=== PATIENT | female | born 1960 | race Caucasian/White ===

== ENCOUNTER 2017-06-05 18:24 | Emergency (ER) | payer MEDICARE, MEDICAID ==
[~2017-06-05] VITALS: Ht 172.7 cm; Wt 101.2 kg
[~2017-06-05 18:24] MED LIST: ALBU8.5H2 INH; BENZ0.5T3 PO; DULO30CA48 PO; DULO60CA58 PO; FLUT1DIS26 INH; FURO20TA4 PO; IBUP800T26 PO; MELO-195 PO; MONT10TA24 PO; NF-ABIL15T PO; NF-ESOM40C PO; OXYB10TA8 PO
--- OUTSIDE RECORDS SUMMARY | 2017-06-05 18:30 | XMS REPORT ---
Author Author NGUYỄN GARBER [facility] eClinicalWorks Address Unknown Phone Unavailable Care Team Providers Care Director Of Revenue Cycle Management Name Role Phone NGUYỄN GARBER CP Unavailable Allergies No Known Allergies Problems Problem Type Condition Code Onset Dates Condition Status Problem Neuropathy G62.9 Active Problem Menopausal symptoms N95.1 Active Problem Rosacea L71.9 Active Problem GERD (gastroesophageal reflux disease) K21.9 Active Problem Arthritis M19.90 Active Problem Mood disorder F39 Active Medications Medication Code System Code Instructions Start Date End Date Status Dosage ibuprofen [facility] [address]-92 800 mg Oral 3 times a day 1 tablet Results No Known Results Summary Purpose eClinicalWorks Submission
--- OUTSIDE RECORDS SUMMARY | 2017-06-05 18:30 | XMS REPORT ---
Author Author NGUYỄN GARBER [facility] Address [address] [place] [address] Care Team Providers Care Working Manager Name Role Phone NGUYỄN GARBER Unavailable PROBLEMS Type Condition ICD9-CM Code [id number] Code Onset Dates Condition Status SNOMED Code Problem Rosacea L71.9 Active 890965710 Problem Neuropathy G62.9 Active 301778535 Problem Mood disorder F39 Active 12053042 Problem GERD (gastroesophageal reflux disease) K21.9 Active 738355057 Problem Menopausal symptoms N95.1 Active 75831842 Problem Arthritis M19.90 Active 0679168 ALLERGIES Unknown Allergies SOCIAL HISTORY No smoking Hx information available PLAN OF CARE VITAL SIGNS MEDICATIONS Unknown Medications RESULTS No Results PROCEDURES No Known procedures IMMUNIZATIONS No Known Immunizations
--- OUTSIDE RECORDS SUMMARY | 2017-06-05 18:30 | XMS REPORT ---
Author Author NGUYỄN GARBER Organization [employer] Address Unknown Phone Unavailable Care Team Providers Care Talent Acquisition Associate Name Role Phone NGUYỄN GARBER CP Unavailable Allergies No Known Allergies Problems Problem Type Condition Code Onset Dates Condition Status Problem Arthritis M19.90 Active Problem Mood disorder F39 Active Problem Menopausal symptoms N95.1 Active Problem GERD (gastroesophageal reflux disease) K21.9 Active Medications No Known Medications Results No Known Results Summary Purpose eClinicalWorks Submission
--- OUTSIDE RECORDS SUMMARY | 2017-06-05 18:30 | XMS REPORT ---
Author Author NGUYỄN GARBER [facility] Address [address] [place] [address] Care Team Providers Care Shipping And Receiving Operator Name Role Phone NGUYỄN GARBER Unavailable PROBLEMS Type Condition ICD9-CM Code FRA01-MZ Code Onset Dates Condition Status SNOMED Code Problem Rosacea L71.9 Active 166146964 Problem Neuropathy G62.9 Active 038239870 Problem Mood disorder F39 Active 45772986 Problem GERD (gastroesophageal reflux disease) K21.9 Active 023503270 Problem Menopausal symptoms N95.1 Active 48419166 Problem Arthritis M19.90 Active 4008885 ALLERGIES Unknown Allergies SOCIAL HISTORY No smoking Hx information available PLAN OF CARE VITAL SIGNS MEDICATIONS Unknown Medications RESULTS No Results PROCEDURES No Known procedures IMMUNIZATIONS No Known Immunizations
--- OUTSIDE RECORDS SUMMARY | 2017-06-05 18:30 | XMS REPORT ---
Author Author NGUYỄN GARBER [facility] eClinicalWorks Address Unknown Phone Unavailable Care Team Providers Care Paid Intern Name Role Phone NGUYỄN GARBER Unavailable Allergies No Known Allergies Problems Problem Type Condition Code Onset Dates Condition Status Problem Arthritis M19.90 Active Problem Mood disorder F39 Active Problem Menopausal symptoms N95.1 Active Problem GERD (gastroesophageal reflux disease) K21.9 Active Medications Medication Code System Code Instructions Start Date End Date Status Dosage Duloxetine HCl [facility] [address]-81 30 MG Orally. Must attend appt for further refills Once a day 1 capsule Duloxetine HCl [facility] [address]-60 60 mg Orally. Must attend appt for further refills Once a day 1 capsules Esomeprazole Sodium [facility] [address]-36 40 mg by oral route 2 times a day 1 tablet Results No Known Results Summary Purpose eClinicalWorks Submission
--- OUTSIDE RECORDS SUMMARY | 2017-06-05 18:30 | XMS REPORT ---
Author Author NEFTALY ISBELL [facility] Address [address] [place] [address] Care Team Providers Care Insurance Appraiser Name Role Phone NEFTALY ISBELL Unavailable PROBLEMS Type Condition ICD9-CM Code VSK25-YU Code Onset Dates Condition Status SNOMED Code Problem Rosacea L71.9 Active 276928554 Problem Neuropathy G62.9 Active 306896663 Problem Mood disorder F39 Active 23804576 Problem GERD (gastroesophageal reflux disease) K21.9 Active 329810069 Problem Menopausal symptoms N95.1 Active 80335819 Problem Arthritis M19.90 Active 1219905 ALLERGIES Unknown Allergies SOCIAL HISTORY No smoking Hx information available PLAN OF CARE VITAL SIGNS Height 68 in 2016-06-30 Weight 264.4 lbs 2016-06-30 BMI 40.20 kg/m2 2016-06-30 Blood pressure systolic 144 mmHg 2016-06-30 Blood pressure diastolic 86 mmHg 2016-06-30 MEDICATIONS Unknown Medications RESULTS No Results PROCEDURES No Known procedures IMMUNIZATIONS No Known Immunizations
--- OUTSIDE RECORDS SUMMARY | 2017-06-05 18:30 | XMS REPORT | Continuity of Care Document ---
Author Author [facility] Organization [facility] Address Unknown Phone Unavailable Allergies Active Description Code Type Severity Reaction Onset Reported/Identified Relationship to Patient Clinical Status Yes bupropion [id number] Drug Allergy Unknown N/A 09/22/2014 Yes cephalexin [id number] Drug Allergy Unknown N/A 09/22/2014 Yes Penicillins [id number] Drug Allergy Unknown N/A 09/22/2014 Yes Sulfa (Sulfonamide Antibiotics) [id number] Drug Allergy Unknown N/A 09/22/2014 Yes ziprasidone [id number] Drug Allergy Unknown N/A 09/22/2014 Medications Problems Date Dx Coded Attending Type Code Diagnosis Diagnosed By 09/23/2014 LIZZETH MASSEY MD Ot 272.4 HYPERLIPIDEMIA NEC/NOS 09/23/2014 LIZZETH MASSEY MD Ot 278.00 OBESITY, NOS 09/23/2014 LIZZETH MASSEY MD Ot 296.50 BIPOL I, REC EPIS (OR CURRENT) DEPRESSED 09/23/2014 LIZZETH MASSEY MD Ot 305.1 TOBACCO USE DISORDER 09/23/2014 LIZZETH MASSEY MD Ot 356.9 IDIO PERIPH NEURPTHY NOS 09/23/2014 LIZZETH MASSEY MD Ot 401.9 HYPERTENSION NOS 09/23/2014 LIZZEHT MASSEY MD Ot 715.90 OSTEOARTHROS NOS-UNSPEC 09/23/2014 LIZZETH MASSEY MD Ot 782.0 SKIN SENSATION DISTURB 09/23/2014 LIZZETH MASSEY MD Ot 786.50 CHEST PAIN NOS 09/23/2014 LIZZETH MASSEY MD Ot V04.81 ND FOR PROPHYLACTIC VACCIN AND INOCULATI 09/23/2014 LIZZETH MASSEY MD Ot V85.36 BODY MASS INDEX 36.0-36.9, ADULT 09/27/2014 MICHAEL LIM Ot 786.05 05/18/2015 MICHAEL LIM Ot 786.05 05/18/2015 ROXANNA NICHOLE DO Ot 305.90 DRUG ABUSE NEC-UNSPEC 05/18/2015 ROXANNA NICHOLE DO Ot 786.50 CHEST PAIN NOS 04/04/2016 MICHAEL LIM Ot 786.05 SHORTNESS OF BREATH 04/04/2016 CAMPOS DO, JAMEEL L Ot F12.10 CANNABIS ABUSE, UNCOMPLICATED 04/04/2016 CAMPOS DO, JAMEEL L Ot F17.210 NICOTINE DEPENDENCE, CIGARETTES, UNCOMPL 04/04/2016 CAMPOS DO, JAMEEL L Ot I51.7 CARDIOMEGALY 04/04/2016 CAMPOS DO, JAMEEL L Ot R07.89 OTHER CHEST PAIN 04/05/2016 CAMPOS DO, JAMEEL L Ot F12.10 CANNABIS ABUSE, UNCOMPLICATED 04/05/2016 CAMPOS DO, JAMEEL L Ot F17.210 NICOTINE DEPENDENCE, CIGARETTES, UNCOMPL 04/05/2016 CAMPOS DO, JAMEEL L Ot I51.7 CARDIOMEGALY 04/05/2016 CAMPOS DO, JAMEEL L Ot R07.89 OTHER CHEST PAIN 04/10/2016 CAMPOS DO, JAMEEL L Ot F12.10 CANNABIS ABUSE, UNCOMPLICATED 04/10/2016 CAMPOS DO, JAMEEL L Ot F17.210 NICOTINE DEPENDENCE, CIGARETTES, UNCOMPL 04/10/2016 CAMPOS DO, JAMEEL L Ot I51.7 CARDIOMEGALY 04/10/2016 CAMPOS DO, JAMEEL L Ot R07.89 OTHER CHEST PAIN Procedures Results Encounters ACCT No. Visit Date/Time Discharge Status Pt. Type Provider Facility Loc./Unit Complaint [id number] 04/04/2016 16:28:00 2015 17:52:00 DIS Emergency BETH COOPER, JAMEEL L [facility] ER [id number] 05/18/2015 16:01:00 2014 17:45:00 DIS Emergency ROXANNA NICHOLE DO [facility] ER [id number] 09/22/2014 21:15:00 2013 17:11:00 DIS Inpatient LIZZETH MASSEY MD [facility] ICU [id number] 04/29/2013 14:13:00 2012 23:59:59 CLS Outpatient MICHAEL LIM [facility]
--- NOTE | 2017-06-05 19:03 | Diagnostic Imaging Report ---
INDICATION: Stood up today and felt a pop in the knee. Medial sided pain. EXAMINATION: Left knee, 06/05/2017. FINDINGS: Three views of the knee. There is medial compartment joint space narrowing with associated spurring with moderate patellofemoral narrowing and spurring as well as subchondral cystic change. There are no fractures or dislocations appreciated. There is no significant effusion. IMPRESSION: Degenerative findings with no acute osseous abnormality. Dictated by: Dictated on workstation # [id number]
--- NOTE | 2017-06-05 19:13 | ED Lower Extremity ---
General Chief Complaint: Lower Extremity Nursing Triage Note: PT STATES FELT L KNEE POP, WHEN EMS PICKED PT UP SHE SAID IT POPPED BACK INTO PLACE. RATES PAIN 12/21 Nursing Sepsis Screen: No Definite Risk Allergies and Home Medications Allergies Coded Allergies: morphine (Verified Allergy, Mild, 06/05/17) Penicillins (Unverified Allergy, Unknown, 09/22/14) Sulfa (Sulfonamide Antibiotics) (Unverified Allergy, Unknown, 09/22/14) bupropion (Unverified Allergy, Unknown, 09/22/14) cephalexin (Unverified Allergy, Unknown, 09/22/14) ziprasidone (Unverified Allergy, Unknown, 09/22/14) Home Medications Albuterol Sulfate 8.5 Gm Aer.w.adap, 2 PUFF INH Q4H PRN for SHORTNESS OF BREATH, (Reported) Aripiprazole 15 Mg Tablet, 15 MG PO DAILY, (Reported) Benztropine Mesylate 0.5 Mg Tablet, 0.5 MG PO BID, (Reported) Duloxetine HCl 30 Mg Capsule.dr, 30 MG PO DAILY, (Reported) TAKES ALONG WITH 60MG CAPSULE Duloxetine HCl 60 Mg Capsule.dr, 60 MG PO DAILY, (Reported) TAKES ALONG WITH 30MG CAPSULE Esomeprazole Mag Trihydrate 40 Mg Capsule.dr, 40 MG PO BID, (Reported) Fluticasone/Salmeterol 1 Disk Inhp, 1 PUFF INH BID, (Reported) Ibuprofen 800 Mg Tablet, 800 MG PO TID PRN for PAIN, (Reported) Meloxicam 15 Mg Tablet, 15 MG PO DAILY, (Reported) Montelukast Sodium 10 Mg Tablet, 10 MG PO DAILY, (Reported) Oxybutynin Chloride 10 Mg Tab.er.24, 10 MG PO DAILY, (Reported) Past Golecgc-Adriwo-Vtnqrs Hx Patient Social History Alcohol Use: Denies Use Recreational Drug Use: No Smoking Status: Current Everyday Smoker Type Used: Cigarettes Recent Foreign Travel: No Contact w/Someone Who Travel: No Recent Infectious Disease Expo: No Physical Abuse: No Sexual Abuse: No Immunizations Up To Date Tetanus Booster (TDap): Unknown Surgeries History of Surgeries: Yes (CATH-NO INTERVENTION, R WRIST AGE 5, BILATERAL FEET , BILATERAL CATARACTS) Surgeries: Cardiac, Eye Surgery, Hysterectomy, Oophorectomy, Orthopedic Respiratory History of Respiratory Disorde: No Cardiovascular History of Cardiac Disorders: Yes (Previous Angina-1996,CLAIMS "3 HEART ATTACKS " BUT NO MEDICAL DOCUMENTATION ) Cardiac Disorders: High Cholesterol Neurological History of Neurological Disord: Yes (CLAIMS PRIOR STROKE, BUT NO MEDICAL DOCUMENTATION OF THIS) Neurological Disorders: Neuropathy, Stroke Reproductive System Hx Reproductive Disorders: No FIRE CHIEF History: Hysterectomy Gastrointestinal History of Gastrointestinal Di: Yes (SELF-DIAGNOSIS) Gastrointestinal Disorders: Ulcer Musculoskeletal History of Musculoskeletal Dis: Yes Musculoskeletal Disorders: Arthritis Endocrine History of Endocrine Disorders: No (OBESITY) Cancer History of Cancer: No Psychosocial History of Psychiatric Problem: Yes Behavioral Health Disorders: Anxiety, Bipolar Suicide Risk Score: 0 Integumentary History of Skin or Integumenta: No Blood Transfusions History of Blood Disorders: No Adverse Reaction to a Blood Tr: No Physical Exam Vital Signs Vital Sign - Last 12Hours 06/05/17 18:25 Temp 98.6 Pulse 70 Resp 18 B/P (MAP) 142/85 Pulse Ox 92 Capillary Refill : Less Than 3 Seconds Progress/Results/Core Measures Results/Orders My Orders Orders - HAVEN ANTONIO MD Knee, Left, 3 Views (06/05/17 18:29) Vital Signs/I&O Vital Sign - Last 12Hours 06/05/17 18:25 Temp 98.6 Pulse 70 Resp 18 B/P (MAP) 142/85 Pulse Ox 92 Blood Pressure Mean: 104 Diagnostic Imaging Diagonstic Imaging: Xray Plain Films/CT/US/NM/MRI: knee Comments Left knee x-ray viewed by me and report reviewed. See report below: NAME: AZEB HOYOS [facility] REC#: [id number] PT STATUS: REG ER : 1960 PHYSICIAN: HAVEN ANTONIO MD ADMIT DATE: 06/05/17/ER Draft Date of Exam:06/05/17 KNEE, LEFT, 3 VIEWS INDICATION: Stood up today and felt a pop in the knee. Medial sided pain. EXAMINATION: Left knee, 06/05/2017. FINDINGS: Three views of the knee. There is medial compartment joint space narrowing with associated spurring with moderate patellofemoral narrowing and spurring as well as subchondral cystic change. There are no fractures or dislocations appreciated. There is no significant effusion. IMPRESSION: Degenerative findings with no acute osseous abnormality. Dictated on workstation # [id number] Dict: 06/05/17 1857 Trans: 06/05/17 1903 [facility] [id number] Interpreted by: AMERICO CAAL MD Departure Impression Impression: Primary Impression: Left knee pain Qualified Codes: M25.562 - Pain in left knee Disposition: HOME, SELF-CARE Condition: Improved Departure-Patient Inst. Decision time for Depature: 19:05 Referrals: NO,LOCAL PHYSICIAN (PCP/Family) Primary Care Physician Patient Instructions: Osteoarthritis Add. Discharge Instructions: The x-ray showed evidence of arthritis in your knee but no acute injuries. Try taking ibuprofen up to 600 mg every 6 hours as needed for pain. Icing in 20 minute intervals may also be helpful. Follow-up with your primary care provider if this becomes a persistent problem. All discharge instructions reviewed with patient and/or family. Voiced understanding. HAVEN ANTONIO MD Jun 05, 2017 19:13
[2017-06-05 19:20] VITALS: BP 142/85
== END 2017-06-05 19:16 | disposition home or self-care (01) ==
LOC: EDUNIT# 18:24 → ER 18:25
DX: M25.562 Pain in left knee (principal); M17.11 Unilateral primary osteoarthritis, right knee; E66.9 Obesity, unspecified; F41.9 Anxiety disorder, unspecified; F31.9 Bipolar disorder, unspecified; E78.00 Pure hypercholesterolemia, unspecified; I25.2 Old myocardial infarction; F17.210 Nicotine dependence, cigarettes, uncomplicated; Z87.19 Personal history of other diseases of the digestive system; Z90.710 Acquired absence of both cervix and uterus; Z86.73 Personal history of transient ischemic attack (TIA), and cerebral infarction without residual deficits; Z68.33 Body mass index [BMI] 33.0-33.9, adult
CPT/HCPCS: 73562; 99283

== ENCOUNTER → 2017-11-29 | Emergency (ER) | payer MEDICARE, MEDICAID ==
[~2017-11-29] VITALS: Ht 172.7 cm; Wt 101.3 kg
[~2017-11-29] MED LIST changes: +IOHEXOL 350 MG/ML 100 ML (OMNIPAQUE 350) VIAL IV ONE; +NS 250 ML (IVPB) BAG IV ONE
--- NOTE | 2017-11-29 14:41 | ED GI ---
General Chief Complaint: Rect Problems Stated Complaint: VAGINAL BLEEDING Nursing Triage Note: C/O possible anal and vaginal bleeding times 1 month. worse over the last couple of days. believes it is more rectal, blood dark, will be in and around stool. C/O JURADO lower back pain, dark spots in eyes, dizzy states she fells toilet with blood but not bleeding between using toilet Sepsis Screen: No Definite Risk Source of Information: Patient Exam Limitations: No Limitations History of Present Illness Date Seen by Provider: Nov 29, 2017 Time Seen by Provider: 14:39 Initial Comments To ER with reports of either vaginal or rectal bleeding for one month. She states that she had a normal blood panel drawn by Dr. Tran 3 weeks ago but she states she doesn't trust him or anyone. She states that she has a headache, lower abdominal pain, low back pain and she fills the toilet with blood. She's been having loose stools which are bloody and bowel movements are painful. She states that she is not on any anticoagulants that she is "a bleeder". States that she smokes marijuana daily to help with her pain. She states that she's had kidney failure 15 times and she's had 3 heart attacks Timing/Duration: 1-2 Days Severity/Quality: Moderate Location: Suprapubic Radiation: Back Activities at Onset: None Associated Symptoms: Denies Symptoms Allergies and Home Medications Allergies Coded Allergies: morphine (Verified Allergy, Mild, 11/29/17) Penicillins (Unverified Allergy, Unknown, 09/22/14) Sulfa (Sulfonamide Antibiotics) (Unverified Allergy, Unknown, 09/22/14) bupropion (Unverified Allergy, Unknown, 09/22/14) cephalexin (Unverified Allergy, Unknown, 09/22/14) ziprasidone (Unverified Allergy, Unknown, 09/22/14) Home Medications Albuterol Sulfate 8.5 Gm Aer.w.adap, 2 PUFF INH Q4H PRN for SHORTNESS OF BREATH, (Reported) Aripiprazole 15 Mg Tablet, 15 MG PO DAILY, (Reported) Benztropine Mesylate 0.5 Mg Tablet, 0.5 MG PO BID, (Reported) Duloxetine HCl 30 Mg Capsule.dr, 30 MG PO DAILY, (Reported) TAKES ALONG WITH 60MG CAPSULE Duloxetine HCl 60 Mg Capsule.dr, 60 MG PO DAILY, (Reported) TAKES ALONG WITH 30MG CAPSULE Esomeprazole Mag Trihydrate 40 Mg Capsule.dr, 40 MG PO BID, (Reported) Fluticasone/Salmeterol 1 Disk Inhp, 1 PUFF INH BID, (Reported) Ibuprofen 800 Mg Tablet, 800 MG PO TID PRN for PAIN, (Reported) Meloxicam 15 Mg Tablet, 15 MG PO DAILY, (Reported) Montelukast Sodium 10 Mg Tablet, 10 MG PO DAILY, (Reported) Oxybutynin Chloride 10 Mg Tab.er.24, 10 MG PO DAILY, (Reported) Review of Systems Constitutional: see HPI, No chills, No fever EENTM: No Symptoms Reported Respiratory: No Symptoms Reported Cardiovascular: See HPI, Denies Chest Pain, Lightheadedness Gastrointestinal: See HPI, Abdominal Pain Genitourinary: No Symptoms Reported Musculoskeletal: no symptoms reported Skin: no symptoms reported Psychiatric/Neurological: No Symptoms Reported Endocrine: No Symptoms Reported Hematologic/Lymphatic: No Symptoms Reported Past Buslilm-Shzezk-Gzrdfu Hx Patient Social History Alcohol Use: Denies Use Recreational Drug Use: Yes (pot- regular use) Smoking Status: Current Everyday Smoker Type Used: Cigarettes Recent Foreign Travel: No Contact w/Someone Who Travel: No Recent Infectious Disease Expo: No Physical Abuse: No Sexual Abuse: No Mistreated: No Fear: No Immunizations Up To Date Tetanus Booster (TDap): Unknown Surgeries History of Surgeries: Yes (CATH-NO INTERVENTION, R WRIST AGE 5, BILATERAL FEET , BILATERAL CATARACTS) Surgeries: Cardiac, Eye Surgery, Hysterectomy, Oophorectomy, Orthopedic Respiratory History of Respiratory Disorde: No Cardiovascular History of Cardiac Disorders: Yes (Previous Angina-1996,CLAIMS "3 HEART ATTACKS " BUT NO MEDICAL DOCUMENTATION ) Cardiac Disorders: High Cholesterol Neurological History of Neurological Disord: Yes (CLAIMS PRIOR STROKE, BUT NO MEDICAL DOCUMENTATION OF THIS) Neurological Disorders: Neuropathy, Stroke Reproductive System Hx Reproductive Disorders: No [employer] History: Hysterectomy Gastrointestinal History of Gastrointestinal Di: Yes (SELF-DIAGNOSIS) Gastrointestinal Disorders: Ulcer Musculoskeletal History of Musculoskeletal Dis: Yes (neuropathy) Musculoskeletal Disorders: Arthritis Endocrine History of Endocrine Disorders: No (OBESITY) Cancer History of Cancer: No Psychosocial History of Psychiatric Problem: Yes Behavioral Health Disorders: Anxiety, Bipolar Suicide Risk Score: 0 Integumentary History of Skin or Integumenta: No Blood Transfusions History of Blood Disorders: No Adverse Reaction to a Blood Tr: No Physical Exam Vital Signs VS - Last 72 Hours, by Label 11/29/17 14:10 Pulse 88 Resp 18 B/P (MAP) 142/87 (105) Pulse Ox 96 Capillary Refill : Less Than 3 Seconds General Appearance: WD/WN, no apparent distress HEENT: PERRL/EOMI, normal ENT inspection Neck: non-tender, full range of motion Respiratory: no respiratory distress, no accessory muscle use Cardiovascular: regular rate, rhythm, no murmur Gastrointestinal: normal bowel sounds, soft, tenderness (suprapubic) Extremities: normal range of motion, non-tender Pelvic: other (no blood at the vaginal introitus or at the rectum) Neurologic/Psychiatric: alert, normal mood/affect, oriented x 3 Skin: normal color, warm/dry Progress/Results/Core Measures Results/Orders Lab Results Laboratory Tests Test 11/29/17 14:30 11/29/17 14:38 Range/Units White Blood Count 10.0 4.3-11.0 10^3/uL Red Blood Count 5.04 4.35-5.85 10^6/uL Hemoglobin 14.9 11.5-16.0 G/DL Hematocrit 43 35-52 % Mean Corpuscular Volume 86 80-99 FL Mean Corpuscular Hemoglobin 30 25-34 PG Mean Corpuscular Hemoglobin Concent 35 32-36 G/DL Red Cell Distribution Width 14.1 10.0-14.5 % Platelet Count 212 130-400 10^3/uL Mean Platelet Volume 11.6 H 7.4-10.4 FL Neutrophils (%) (Auto) 64 42-75 % Lymphocytes (%) (Auto) 28 12-44 % Monocytes (%) (Auto) 7 0-12 % Eosinophils (%) (Auto) 1 0-10 % Basophils (%) (Auto) 0 0-10 % Neutrophils # (Auto) 6.4 1.8-7.8 X 10^3 Lymphocytes # (Auto) 2.8 1.0-4.0 X 10^3 Monocytes # (Auto) 0.7 0.0-1.0 X 10^3 Eosinophils # (Auto) 0.1 0.0-0.3 10^3/uL Basophils # (Auto) 0.0 0.0-0.1 10^3/uL Prothrombin Time 13.6 12.2-14.7 SEC INR Comment 1.0 0.8-1.4 Activated Partial Thromboplast Time 28 24-35 SEC Sodium Level 139 135-145 MMOL/L Potassium Level 3.8 3.6-5.0 MMOL/L Chloride Level 108 H 98-107 MMOL/L Carbon Dioxide Level 21 21-32 MMOL/L Anion Gap 10 5-14 MMOL/L Blood Urea Nitrogen 13 7-18 MG/DL Creatinine 0.93 0.60-1.30 MG/DL Estimat Glomerular Filtration Rate > 60 BUN/Creatinine Ratio 14 Glucose Level 94 70-105 MG/DL Calcium Level 9.6 8.5-10.1 MG/DL Total Bilirubin 0.3 0.1-1.0 MG/DL Aspartate Amino Transf (AST/SGOT) 24 5-34 U/L Alanine Aminotransferase (ALT/SGPT) 29 0-55 U/L Alkaline Phosphatase 107 40-136 U/L Total Protein 7.8 6.4-8.2 GM/DL Albumin 3.8 3.2-4.5 GM/DL Urine Color YELLOW Urine Clarity CLEAR Urine pH 7 5-9 Urine Specific [place] 1.010 L 1.016-1.022 Urine Protein NEGATIVE NEGATIVE Urine Glucose (UA) NEGATIVE NEGATIVE Urine Ketones NEGATIVE NEGATIVE Urine Nitrite NEGATIVE NEGATIVE Urine Bilirubin NEGATIVE NEGATIVE Urine Urobilinogen NORMAL NORMAL MG/DL Urine Leukocyte Esterase NEGATIVE NEGATIVE Urine RBC (Auto) NEGATIVE NEGATIVE Urine RBC NONE /HPF Urine WBC NONE /HPF Urine Squamous Epithelial Cells RARE /HPF Urine Crystals NONE /LPF Urine Bacteria NEGATIVE /HPF Urine Casts NONE /LPF Urine Mucus NEGATIVE /LPF Urine Culture Indicated NO Urine Opiates Screen NEGATIVE NEGATIVE Urine Oxycodone Screen NEGATIVE NEGATIVE Urine Methadone Screen NEGATIVE NEGATIVE Urine Propoxyphene Screen NEGATIVE NEGATIVE Urine Barbiturates Screen NEGATIVE NEGATIVE Ur Tricyclic Antidepressants Screen NEGATIVE NEGATIVE Urine Phencyclidine Screen NEGATIVE NEGATIVE Urine Amphetamines Screen NEGATIVE NEGATIVE Urine Methamphetamines Screen NEGATIVE NEGATIVE Urine Benzodiazepines Screen NEGATIVE NEGATIVE Urine Cocaine Screen NEGATIVE NEGATIVE Urine Cannabinoids Screen POSITIVE H NEGATIVE My Orders Orders - LANE LEW[facility] [employer] Cbc With Automated Diff (11/29/17 14:28) Comprehensive Metabolic Panel (11/29/17 14:28) Protime With Inr (11/29/17 14:28) Partial Thromboplastin Time (11/29/17 14:28) Ua Culture If Indicated (11/29/17 14:28) Saline Lock/Iv-Start (11/29/17 14:28) Drug Screen Stat (Urine) (11/29/17 14:28) Ct Abdomen/Pelvis W (11/29/17 14:38) Iohexol Injection (Omnipaque 350 Mg/Ml 1 (11/29/17 15:45) Ns (Ivpb) (Sodium Chloride 0.9%) (11/29/17 15:45) Pharmacy Communication (Pharmacy Communi (11/29/17 15:38) Medications Given in ED Current Medications Medications Dose Ordered Sig/Andrei Route Start Time Stop Time Status Last Admin Dose Admin Iohexol 100 ml ONCE ONCE IV 11/29/17 15:45 11/29/17 15:46 DC 11/29/17 16:02 100 ML Sodium Chloride 250 ml ONCE ONCE IV 11/29/17 15:45 11/29/17 15:46 DC 11/29/17 16:02 80 ML Vital Signs/I&O Vital Sign - Last 12Hours 11/29/17 14:10 Pulse 88 Resp 18 B/P (MAP) 142/87 (105) Pulse Ox 96 Blood Pressure Mean: 105 Diagnostic Imaging Diagonstic Imaging: CT Comments NAME: AZEB HOYOS [facility] REC#: [id number] PT STATUS: REG ER : 1960 PHYSICIAN: L[facility] LEW[facility] SPLUNK DEVELOPER ADMIT DATE: 11/29/17/ER Signed Date of Exam:11/29/17 CT ABDOMEN/PELVIS W PROCEDURE: CT abdomen and pelvis with contrast. TECHNIQUE: Multiple contiguous axial images were obtained through the abdomen and pelvis after administration of intravenous contrast. INDICATION: Rectal versus vaginal bleeding The lung bases are clear. The liver appears normal. The gallbladder is present. The pancreas appears normal. The spleen is not enlarged. There is a 1.5 cm hypodense adrenal nodule on the right consistent with an adenoma. Left adrenal gland is normal. Kidneys appear normal. The colon appears normal. Small bowel is not dilated. Appendix is normal. Bladder is normal. Uterus is surgically absent. Adnexa are unremarkable. There is no intraperitoneal free air or free fluid. There is minimal calcific atherosclerosis of the aorta. Impression: No acute abnormalities seen in the abdomen or pelvis. Dictated by: Dictated on workstation # [id number] Dict: 11/29/17 1606 Trans: 11/29/17 1608 [id number] Interpreted by: JOHN VALVERDE MD Electronically signed by: JOHN VALVERDE MD 11/29/17 1608 Departure Impression Impression: Primary Impression: History of rectal bleeding Disposition: HOME, SELF-CARE Condition: Stable Departure-Patient Inst. Decision time for Depature: 16:08 Referrals: MICHAEL MAURICE BRETT D DO JENKINS, XAVIER M MD KIDO, TAKAAKI MD NO,LOCAL PHYSICIAN (PCP) Primary Care Physician Patient Instructions: NO INSTRUCTIONS GIVEN Add. Discharge Instructions: 1. Call one of the surgeons listed or a surgeon of your choosing to make an appointment for follow-up for colonoscopy. Return to the emergency room for any concerns. Follow-up with your regular doctor next week for recheck. All discharge instructions reviewed with patient and/or family. Voiced understanding. LANE LEWIS APRN Nov 29, 2017 14:41
[2017-11-29 14:47] LABS: BILIRUBIN,URINE NEGATIVE (NEGATIVE); CLARITY,URINE CLEAR; COLOR,URINE YELLOW; GLUCOSE, URINE (UA) NEGATIVE (NEGATIVE); KETONES,URINE NEGATIVE (NEGATIVE); LEUKOCYTE ESTERASE ,URINE NEGATIVE (NEGATIVE); NITRITE,URINE NEGATIVE (NEGATIVE); PH,URINE 7 (5-9); PROTEIN,URINE NEGATIVE (NEGATIVE); UROBILINOGEN,URINE NORMAL (NORMAL)
[2017-11-29 14:55] LABS: BACTERIA,URINE NEGATIVE /HPF; SQUAMOUS EPITHELIAL CELL,UR RARE /HPF
[2017-11-29 15:06] LABS: AMPHETAMINE SCREEN, URINE NEGATIVE (NEGATIVE); BARBITURATE SCREEN URINE NEGATIVE (NEGATIVE); BENZODIAZEPINES SCREEN URINE NEGATIVE (NEGATIVE); CANNABINOID SCREEN, URINE POSITIVE (NEGATIVE); COCAINE SCREEN URINE NEGATIVE (NEGATIVE); METHADONE STAT NEGATIVE (NEGATIVE); METHAMPHETAMINE SCREEN URINE S NEGATIVE (NEGATIVE); OPIATE SCREEN URINE NEGATIVE (NEGATIVE); OXYCODONE STAT NEGATIVE (NEGATIVE); PROPOXYPHENE STAT NEGATIVE (NEGATIVE); TRICYCLIC ANTIDEPRESSANTS SCRE NEGATIVE (NEGATIVE)
[2017-11-29 15:16] LABS: BASOPHILS % (AUTO) 0 % (0-10); EOSINOPHILS # (AUTO) 0.1 10^3/uL (0.0-0.3); EOSINOPHILS % (AUTO) 1 % (0-10); HEMATOCRIT 43 % (35-52); HEMOGLOBIN 14.9 G/DL (11.5-16.0); LYMPHOCYTES # (AUTO) 2.8 X 10^3 (1.0-4.0); LYMPHOCYTES % (AUTO) 28 % (12-44); MEAN CORPUSCULAR HEMOGLOBIN 30 PG (25-34); MEAN CORPUSCULAR HGB CONC 35 G/DL (32-36); MEAN CORPUSCULAR VOLUME 86 FL (80-99); MEAN PLATELET VOLUME 11.6 FL (7.4-10.4); MONOCYTES # (AUTO) 0.7 X 10^3 (0.0-1.0); MONOCYTES % (AUTO) 7 % (0-12); NEUTROPHILS # (AUTO) 6.4 X 10^3 (1.8-7.8); NEUTROPHILS % (AUTO) 64 % (42-75); PLATELET COUNT 212 10^3/uL (130-400); RED BLOOD COUNT 5.04 10^6/uL (4.35-5.85); RED CELL DISTRIBUTION WIDTH 14.1 % (10.0-14.5)
[2017-11-29 15:27] LABS: PROTHROMBIN TIME PATIENT 13.6 SEC (12.2-14.7)
[2017-11-29 15:36] LABS: ALANINE AMINOTRANSFERASE 29 U/L (0-55); ALBUMIN 3.8 GM/DL (3.2-4.5); ALKALINE PHOSPHATASE 107 U/L (40-136); BILIRUBIN,TOTAL 0.3 MG/DL (0.1-1.0); BUN/CREATININE RATIO 14; CALCIUM 9.6 MG/DL (8.5-10.1); CARBON DIOXIDE 21 MMOL/L (21-32); CHLORIDE 108 MMOL/L (98-107); CREATININE SERUM 0.93 MG/DL (0.60-1.30); GFR ESTIMATED > 60; GLUCOSE 94 MG/DL (70-105); POTASSIUM 3.8 MMOL/L (3.6-5.0); SODIUM 139 MMOL/L (135-145); TOTAL PROTEIN 7.8 GM/DL (6.4-8.2)
--- NOTE | 2017-11-29 16:11 | Diagnostic Imaging Report ---
PROCEDURE: CT abdomen and pelvis with contrast. TECHNIQUE: Multiple contiguous axial images were obtained through the abdomen and pelvis after administration of intravenous contrast. INDICATION: Rectal versus vaginal bleeding The lung bases are clear. The liver appears normal. The gallbladder is present. The pancreas appears normal. The spleen is not enlarged. There is a 1.5 cm hypodense adrenal nodule on the right consistent with an adenoma. Left adrenal gland is normal. Kidneys appear normal. The colon appears normal. Small bowel is not dilated. Appendix is normal. Bladder is normal. Uterus is surgically absent. Adnexa are unremarkable. There is no intraperitoneal free air or free fluid. There is minimal calcific atherosclerosis of the aorta. Impression: No acute abnormalities seen in the abdomen or pelvis. Dictated by: Dictated on workstation # [id number]
[2017-11-29 16:24] VITALS: BP 142/87
== END | disposition home or self-care (01) ==
LOC: EDUNIT# 13:31 → ER 13:33
DX: K62.5 Hemorrhage of anus and rectum (principal); E66.9 Obesity, unspecified; F41.9 Anxiety disorder, unspecified; F31.9 Bipolar disorder, unspecified; E78.00 Pure hypercholesterolemia, unspecified; F17.210 Nicotine dependence, cigarettes, uncomplicated; Z90.710 Acquired absence of both cervix and uterus; Z86.73 Personal history of transient ischemic attack (TIA), and cerebral infarction without residual deficits; Z87.19 Personal history of other diseases of the digestive system; Z88.5 Allergy status to narcotic agent; Z88.0 Allergy status to penicillin; Z88.8 Allergy status to other drugs, medicaments and biological substances
CPT/HCPCS: 36415; 74177; 80053; 80306; 81000; 85025; 85610; 85730

== ENCOUNTER → 2017-12-18 | Outpatient (CLI) | payer MEDICARE, MEDICAID ==
[~2017-12-18] MED LIST changes: -IOHEXOL 350 MG/ML 100 ML (OMNIPAQUE 350) VIAL IV ONE; -NS 250 ML (IVPB) BAG IV ONE
== END ==
LOC: PREOP 05:41
PROVIDERS: ATTEND Surgery
DX: Z01.818 Encounter for other preprocedural examination (principal); K62.5 Hemorrhage of anus and rectum

== ENCOUNTER 2019-11-08 09:37 | Observation (INO) | payer MEDICARE, MEDICAID ==
[~2019-11-08] VITALS: Ht 170.2 cm; Wt 119.2 kg
[2019-11-08] MEDS ORDERED: LACTATED RINGERS 1,000 ML IV ONE ×2 (09:55→12:24)
[2019-11-08] MEDS ORDERED: LORazepam INJ 2 MG/ML (ATIVAN) VIAL IM ONE (10:00)
[2019-11-08] MEDS ORDERED: diphenhydrAMINE 50 MG/ML INJ (BENADRYL) IM ONE (10:00)
[2019-11-08] MEDS ORDERED: HALOPERIDOL 5 MG/ML (HALDOL) AMP IM ONE (10:00)
[2019-11-08 11:26] LABS: BASOPHILS % (AUTO) 0 % (0-10); EOSINOPHILS % (AUTO) 0 % (0-10); HEMATOCRIT 41 % (35-52); HEMOGLOBIN 13.7 G/DL (11.5-16.0); LYMPHOCYTES # (AUTO) 2.4 X 10^3 (1.0-4.0); LYMPHOCYTES % (AUTO) 23 % (12-44); MEAN CORPUSCULAR HEMOGLOBIN 28 PG (25-34); MEAN CORPUSCULAR HGB CONC 33 G/DL (32-36); MEAN CORPUSCULAR VOLUME 84 FL (80-99); MEAN PLATELET VOLUME 12.1 FL (7.4-10.4); MONOCYTES # (AUTO) 0.7 X 10^3 (0.0-1.0); MONOCYTES % (AUTO) 7 % (0-12); NEUTROPHILS # (AUTO) 7.1 X 10^3 (1.8-7.8); NEUTROPHILS % (AUTO) 70 % (42-75); PLATELET COUNT 207 10^3/uL (130-400); RED CELL DISTRIBUTION WIDTH 15.2 % (10.0-14.5); WHITE BLOOD COUNT 10.2 10^3/uL (4.3-11.0)
[2019-11-08 11:46] LABS: ACETAMINOPHEN < 10 UG/ML (10-30); ALANINE AMINOTRANSFERASE 32 U/L (0-55); ALKALINE PHOSPHATASE 98 U/L (40-136); BILIRUBIN,TOTAL 0.4 MG/DL (0.1-1.0); BUN/CREATININE RATIO 13; CALCIUM 10.3 MG/DL (8.5-10.1); CARBON DIOXIDE 15 MMOL/L (21-32); CHLORIDE 106 MMOL/L (98-107); CREATININE SERUM 1.11 MG/DL (0.60-1.30); GFR ESTIMATED 50; GLUCOSE 122 MG/DL (70-105); POTASSIUM 3.5 MMOL/L (3.6-5.0); SALICYLATE < 5.0 MG/DL (5.0-20.0); SODIUM 137 MMOL/L (135-145); TOTAL PROTEIN 8.3 GM/DL (6.4-8.2)
--- NOTE | 2019-11-08 12:06 | ED Psychosocial ---
General Chief Complaint: Psych/Social Disorder Stated Complaint: AMS Nursing Triage Note: Patient brought by EMS with PPD. Patient has been knocking on doors and threatening to fight individuals. Source: patient Exam Limitations: no limitations (JOHN MONTENEGRO MD) History of Present Illness Date Seen by Provider: Nov 08, 2019 Time Seen by Provider: 09:45 Initial Comments Here by EMS with police escort due to patient with concerns of psychiatric disorder. Patient does have history of bipolar and is not currently on her medicines. She apparently has had changing and/or aggressive behavior at her area of residence. She lives at [facility] and apparently has been knocking on different people's doors and being aggressive towards them. She has not hurt anybody or hurt herself. She is complaining of demons in her body and concerns about the dangers of that with regard to her health. She is challenging to talk with an interview as she has flight of ideas and changes topics often. She does answer questions and does know self and where she lives. She appears to be suffering from acute psychosis currently. Reportedly, this is been going on over the last 2-3 days but is getting worse. Son is here and he reports that she's had these episodes previous but it's been for 5 years ago. She is currently on Cymbalta and Abilify but the patient states that she is not on any bipolar medicines. It does appear that she may have run out of her Abilify 10 mg daily prescription on 11/02/19 and there has not been any refills on that. Patient is a poor historian and needs frequent redirection. Timing/Duration: getting worse, other (last few days) Severity: moderate, severe Associated Symptoms: anxiety, impaired concentration (JOHN MONTENEGRO MD) Allergies and Home Medications Allergies Coded Allergies: morphine (Verified Allergy, Mild, 11/29/17) Penicillins (Unverified Allergy, Unknown, 09/22/14) Sulfa (Sulfonamide Antibiotics) (Unverified Allergy, Unknown, 09/22/14) bupropion (Unverified Allergy, Unknown, 09/22/14) cephalexin (Unverified Allergy, Unknown, 09/22/14) ziprasidone (Unverified Allergy, Unknown, 09/22/14) Home Medications Albuterol Sulfate 8.5 Gm Aer.w.adap, 2 PUFF INH Q4H PRN for SHORTNESS OF BREATH, (Reported) Aripiprazole 15 Mg Tablet, 15 MG PO DAILY, (Reported) Benztropine Mesylate 0.5 Mg Tablet, 0.5 MG PO BID, (Reported) Duloxetine HCl 30 Mg Capsule.dr, 30 MG PO DAILY, (Reported) TAKES ALONG WITH 60MG CAPSULE Duloxetine HCl 60 Mg Capsule.dr, 60 MG PO DAILY, (Reported) TAKES ALONG WITH 30MG CAPSULE Esomeprazole Mag Trihydrate 40 Mg Capsule.dr, 40 MG PO BID, (Reported) Fluticasone/Salmeterol 1 Disk Inhp, 1 PUFF INH BID, (Reported) Ibuprofen 800 Mg Tablet, 800 MG PO TID PRN for PAIN, (Reported) Meloxicam 15 Mg Tablet, 15 MG PO DAILY, (Reported) Montelukast Sodium 10 Mg Tablet, 10 MG PO DAILY, (Reported) Oxybutynin Chloride 10 Mg Tab.er.24, 10 MG PO DAILY, (Reported) Patient Home Medication List Home Medication List Reviewed: Yes (JOHN MONTENEGRO MD) Review of Systems Constitutional: no symptoms reported EENTM: no symptoms reported Respiratory: No short of breath, No wheezing Cardiovascular: no symptoms reported Gastrointestinal: No diarrhea, No nausea, No vomiting Genitourinary: no symptoms reported Musculoskeletal: no symptoms reported Skin: no symptoms reported Psychiatric/Neurological: Anxiety, Emotional Problems (JOHN MONTENEGRO MD) Past Edrvdxo-Kqnqje-Ysaiup Hx Past Med/Social Hx: Reviewed Nursing Past Med/Soc Hx (JOHN MONTENEGRO MD) Patient Social History Alcohol Use: Denies Use Recreational Drug Use: No Smoking Status: Current Everyday Smoker Type Used: Cigarettes Recent Foreign Travel: No Contact w/Someone Who Travel: No Recent Infectious Disease Expo: No (JOHN MONTENEGRO MD) Immunizations Up To Date Tetanus Booster (TDap): Unknown (JOHN MONTENEGRO MD) Past Medical History Surgeries: Yes (CATH-NO INTERVENTION, R WRIST AGE 5, BILATERAL FEET, BILATERAL CATARACTS) Cardiac, Eye Surgery, Hysterectomy, Oophorectomy, Orthopedic Respiratory: No Cardiac: Yes (Previous Angina-1996,CLAIMS "3 HEART ATTACKS" BUT NO MEDICAL DOCUMENTATION ) High Cholesterol Neurological: Yes (CLAIMS PRIOR STROKE, BUT NO MEDICAL DOCUMENTATION OF THIS) Neuropathy, Stroke 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 Gastrointestinal: Yes (SELF-DIAGNOSIS) Ulcer Musculoskeletal: Yes (neuropathy) Arthritis Endocrine: No (OBESITY) Cancer: No Psychosocial: Yes Anxiety, Bipolar Integumentary: No Blood Disorders: No Adverse Reaction/Blood Tranf: No (JOHN MONTENEGRO MD) Family Medical History Reviewed Nursing Family Hx (JOHN MONTENEGRO MD) Physical Exam Vital Signs - First Documented 11/08/19 11/08/19 09:47 19:46 Temp 36.3 Pulse 118 Resp 20 B/P (MAP) 172/148 (156) Pulse Ox 94 O2 Delivery Nasal Cannula O2 Flow Rate 2.00 (LANE LEWIS APRN) Capillary Refill : Less Than 3 Seconds (JOHN MONTENEGRO MD) Height, Weight, BMI Height: 5'8.00" Weight: 223lbs. 5.0oz. [id number]; 38.00 BMI Method:Stated General Appearance: WD/WN, mild distress, obese HEENT: PERRL/EOMI, pharynx normal, other (dry mucous membranes) Neck: full range of motion, supple Respiratory: lungs clear, normal breath sounds Cardiovascular: no murmur, tachycardia Gastrointestinal: non tender, soft Extremities: non-tender, normal inspection Neurologic/Psychiatric: alert Appearance/Memory: denies illness, disheveled Behavior/Eye Contact: increased rate of speech, compulsive Thoughts/Hallucinations: delusions, flight of ideas Skin: normal color, warm/dry (JOHN MONTENEGRO MD) Progress/Results/Core Measures Results/Orders Lab Results Laboratory Tests Test 11/08/19 10:50 11/08/19 15:07 Range/Units White Blood Count 10.2 4.3-11.0 10^3/uL Red Blood Count 4.89 4.35-5.85 10^6/uL Hemoglobin 13.7 11.5-16.0 G/DL Hematocrit 41 35-52 % Mean Corpuscular Volume 84 80-99 FL Mean Corpuscular Hemoglobin 28 25-34 PG Mean Corpuscular Hemoglobin Concent 33 32-36 G/DL Red Cell Distribution Width 15.2 H 10.0-14.5 % Platelet Count 207 130-400 10^3/uL Mean Platelet Volume 12.1 H 7.4-10.4 FL Neutrophils (%) (Auto) 70 42-75 % Lymphocytes (%) (Auto) 23 12-44 % Monocytes (%) (Auto) 7 0-12 % Eosinophils (%) (Auto) 0 0-10 % Basophils (%) (Auto) 0 0-10 % Neutrophils # (Auto) 7.1 1.8-7.8 X 10^3 Lymphocytes # (Auto) 2.4 1.0-4.0 X 10^3 Monocytes # (Auto) 0.7 0.0-1.0 X 10^3 Eosinophils # (Auto) 0.0 0.0-0.3 10^3/uL Basophils # (Auto) 0.0 0.0-0.1 10^3/uL Sodium Level 137 135-145 MMOL/L Potassium Level 3.5 L 3.6-5.0 MMOL/L Chloride Level 106 98-107 MMOL/L Carbon Dioxide Level 15 L 21-32 MMOL/L Anion Gap 16 H 5-14 MMOL/L Blood Urea Nitrogen 14 7-18 MG/DL Creatinine 1.11 0.60-1.30 MG/DL Estimat Glomerular Filtration Rate 50 BUN/Creatinine Ratio 13 Glucose Level 122 H 70-105 MG/DL Calcium Level 10.3 H 8.5-10.1 MG/DL Corrected Calcium 10.3 H 8.5-10.1 MG/DL Total Bilirubin 0.4 0.1-1.0 MG/DL Aspartate Amino Transf (AST/SGOT) 37 H 5-34 U/L Alanine Aminotransferase (ALT/SGPT) 32 0-55 U/L Alkaline Phosphatase 98 40-136 U/L Total Protein 8.3 H 6.4-8.2 GM/DL Albumin 4.0 3.2-4.5 GM/DL Salicylates Level < 5.0 L 5.0-20.0 MG/DL Acetaminophen Level < 10 L 10-30 UG/ML Serum Alcohol < 10 <10 MG/DL Urine Color YELLOW Urine Clarity CLOUDY Urine pH 6.0 5-9 Urine Specific Lilly <=1.005 1.016-1.022 Urine Protein NEGATIVE NEGATIVE Urine Glucose (UA) NEGATIVE NEGATIVE Urine Ketones NEGATIVE NEGATIVE Urine Nitrite NEGATIVE NEGATIVE Urine Bilirubin NEGATIVE NEGATIVE Urine Urobilinogen 0.2 < = 1.0 MG/DL Urine Leukocyte Esterase TRACE NEGATIVE Urine RBC (Auto) 1+ H NEGATIVE Urine RBC 5-10 H /HPF Urine WBC 0-2 /HPF Urine Squamous Epithelial Cells 2-5 /HPF Urine Crystals NONE /LPF Urine Bacteria LARGE H /HPF Urine Casts NONE /LPF Urine Mucus NEGATIVE /LPF Urine Culture Indicated YES Urine Opiates Screen NEGATIVE NEGATIVE Urine Oxycodone Screen NEGATIVE NEGATIVE Urine Methadone Screen NEGATIVE NEGATIVE Urine Propoxyphene Screen NEGATIVE NEGATIVE Urine Barbiturates Screen NEGATIVE NEGATIVE Ur Tricyclic Antidepressants Screen NEGATIVE NEGATIVE Urine Phencyclidine Screen NEGATIVE NEGATIVE Urine Amphetamines Screen NEGATIVE NEGATIVE Urine Methamphetamines Screen NEGATIVE NEGATIVE Urine Benzodiazepines Screen NEGATIVE NEGATIVE Urine Cocaine Screen NEGATIVE NEGATIVE Urine Cannabinoids Screen POSITIVE H NEGATIVE (LANE LEWIS APRN) Medications Given in ED Current Medications Medications Dose Ordered Sig/Andrei Route Start Time Stop Time Status Last Admin Dose Admin Lactated Ringer's 1,000 ml @ 0 mls/hr Q0M ONCE IV 11/08/19 12:24 11/08/19 12:25 DC 11/08/19 13:20 0 MLS/HR (LANE LEWIS APRN) Vital Signs/I&O 11/08/19 11/08/19 11/08/19 19:46 20:16 20:16 Temp 37.0 37.0 Pulse 108 89 89 Resp 22 20 20 B/P (MAP) 114/76 143/85 143/85 (104) Pulse Ox 96 96 96 O2 Delivery Nasal Cannula Room Air Room Air O2 Flow Rate 2.00 (LANE LEWIS APRN) Blood Pressure Mean: 156 Progress Progress Note : Progress Note Seen and evaluated. Police are with the patient. She is redirectable. She does ramp up with respect to behavior. Due to agitation, we have considered Danni but she has that listed as an allergy. We will go ahead and give Benadryl 25 mg IM, Haldol 5 mg IM and Ativan 2 mg IM to help her with her agitation. We will also order medical clearance labs, UA and EKG. LR 1 L bolus ordered for tachycardia and dry mucous membranes. Monitor patient. 1230: Patient resting comfortably and not agitated. We will get CT of the head to continue the medical clearance and we are still pending urine. CT is normal and chemistries are okay. Monitor patient. 1314: Resting peacefully. Pending UA. CT negative. 1700: Patient has been given Abilify 10 mg by mouth as it turns out she was off her Abilify and this may be part of the problem. She has rested without complaint. We will get mental health to screen to see if she needs involuntary admission. She is medically cleared for evaluation. There is question of urinary tract infection so we will treat that and that can be treated here or at another facility. Macrobid 100 mg by mouth given. (JOHN MONTENEGRO MD) Initial ECG Impression Date: Nov 08, 2019 Initial ECG Impression Time: 10:46 Initial ECG Rate: 105 Initial ECG Rhythm: S.Tach Comment Sinus tachycardia with left axis deviation. No evidence of ST elevation PA. PVC noted. Similar to previous of 04/05/16 including tachycardia. Interpreted by me. (JOHN MONTENEGRO MD) Diagnostic Imaging Diagonstic Imaging: CT Plain Films/CT/US/NM/MRI: head Comments [facility]. [place], [place] NAME: AZEB HOYOS [facility] REC#: [id number] PT STATUS: REG ER : 1960 PHYSICIAN: JOHN MONTENEGRO MD ADMIT DATE: 11/08/19/ER Draft Date of Exam:11/08/19 CT HEAD WO PROCEDURE: CT head without contrast. TECHNIQUE: Multiple contiguous axial images were obtained through the brain without the use of intravenous contrast. Auto Exposure Controls were utilized during the CT exam to meet ALARA standards for radiation dose reduction. INDICATION: Altered mental status. COMPARISON: None FINDINGS: There is marked motion artifact throughout the exam, which is repeated. The ventricles and cortical sulci appear age-appropriate. There is no midline shift or mass effect. No acute intracranial hemorrhage is seen. No CT evidence of acute territorial ischemia is seen. The calvarium appears intact. IMPRESSION: 1. Marked motion artifact. No acute intracranial hemorrhage or CT evidence of acute territorial ischemia is seen. Dictated on workstation # [id number] Dict: 11/08/19 1303 Trans: 11/08/19 1307 [facility] [id number] Interpreted by: MARTA HITCHCOCK MD Electronically signed by: (JOHN MONTENEGRO MD) Departure Communication (Admissions) Time/Spoke to Admitting Phy: 19:[address] Brownlee who agrees to admit 1904-taken over care from Dr. MONTENEGRO. Due to agitation she had been given Abilify and Ativan/Benadryl/Haldol here. She is now lethargic but arousable to verbal stimuli but lethargic enough that she does not participate in mental health screening exam. [facility] health screening her [place] showed up but she was unable to participate. As such we'll admit to the hospital, left her sleep and recover from sleep deprivation due to her manic state for the past few days/medication and reevaluate in the morning with the idea that she should be able to participate in mental health screening exam to determine need for involuntary psychiatric admission versus home with outpatient therapy. However I will order Ativan when necessary upstairs for agitation should she get out of control again. (LANE LEWIS APRN) Impression Primary Impression: Psychosis Qualified Codes: F29 - Unspecified psychosis not due to a substance or known physiological condition Disposition: ADMITTED INPATIENT Condition: Stable Admissions Decision to Admit Reason: Admit from ER (General) Decision to Admit/Date: Nov 08, 2019 Time/Decision to Admit Time: 22:21 (LANE LEWIS APRN) Departure-Patient Inst. Referrals: NO,LOCAL PHYSICIAN (PCP/Family) Primary Care Physician JOHN MONTENEGRO MD Nov 08, 2019 12:[address] LEWIS APRN Nov 08, 2019 19:09
--- NOTE | 2019-11-08 13:08 | Diagnostic Imaging Report ---
PROCEDURE: CT head without contrast. TECHNIQUE: Multiple contiguous axial images were obtained through the brain without the use of intravenous contrast. Auto Exposure Controls were utilized during the CT exam to meet ALARA standards for radiation dose reduction. INDICATION: Altered mental status. COMPARISON: None FINDINGS: There is marked motion artifact throughout the exam, which is repeated. The ventricles and cortical sulci appear age-appropriate. There is no midline shift or mass effect. No acute intracranial hemorrhage is seen. No CT evidence of acute territorial ischemia is seen. The calvarium appears intact. IMPRESSION: 1. Marked motion artifact. No acute intracranial hemorrhage or CT evidence of acute territorial ischemia is seen. Dictated by: Dictated on workstation # [id number]
[2019-11-08 15:14] LABS: BILIRUBIN,URINE NEGATIVE (NEGATIVE); CLARITY,URINE CLOUDY; COLOR,URINE YELLOW; GLUCOSE, URINE (UA) NEGATIVE (NEGATIVE); KETONES,URINE NEGATIVE (NEGATIVE); LEUKOCYTE ESTERASE ,URINE TRACE (NEGATIVE); NITRITE,URINE NEGATIVE (NEGATIVE); PROTEIN,URINE NEGATIVE (NEGATIVE)
[2019-11-08 15:21] LABS: BACTERIA,URINE LARGE /HPF; WBC,URINE 0-2 /HPF
[2019-11-08 15:35] LABS: AMPHETAMINE SCREEN, URINE NEGATIVE (NEGATIVE); BARBITURATE SCREEN URINE NEGATIVE (NEGATIVE); BENZODIAZEPINES SCREEN URINE NEGATIVE (NEGATIVE); CANNABINOID SCREEN, URINE POSITIVE (NEGATIVE); COCAINE SCREEN URINE NEGATIVE (NEGATIVE); METHADONE STAT NEGATIVE (NEGATIVE); METHAMPHETAMINE SCREEN URINE S NEGATIVE (NEGATIVE); OPIATE SCREEN URINE NEGATIVE (NEGATIVE); OXYCODONE STAT NEGATIVE (NEGATIVE); PROPOXYPHENE STAT NEGATIVE (NEGATIVE); TRICYCLIC ANTIDEPRESSANTS SCRE NEGATIVE (NEGATIVE)
[2019-11-08] MEDS ORDERED: NITROFURANTOIN 100 MG (MACROBID) CAPSULE PO ONE (17:30)
--- NOTE | 2019-11-08 20:00 | NUR ---
AZEB HOYOS admitted to room 426-1, with an admitting diagnosis of Psychosis, on 11/08/19 from ED via , accompanied by ED STAFF. AZEB HOYOS introduced to surroundings, call light, bed controls, phone, TV, temperature control, lights, meal times, smoking policy, visitor policy, side rail policy, bathrooms and showers. Patient Rights given to patient in the handbook. AZEB HOYOS verbalizes understanding that [facility] is not responsible for the loss or damage to any personal effects or valuables that are kept in the patients posession during their hospitalization. CARE PLAN WAS DISCUSSED WHIT THE PT. AZEB HOYOS verbalizes understanding of Interdisciplinary Patient Education. Patient and/or family were informed about the Rapid Response Team and its purpose.
[2019-11-08 20:16] VITALS: BP 143/85
[2019-11-08] MEDS ORDERED: LORazepam 1 MG (ATIVAN) TAB PO PRN (21:15)
[2019-11-08] MEDS ORDERED: LORazepam INJ 2 MG/ML (ATIVAN) VIAL IM/IV PRN (21:15)
[2019-11-09 00:35] VITALS: BP 134/77
[2019-11-09 05:01] VITALS: BP 136/74
[2019-11-09 07:59] VITALS: BP 150/87
--- NOTE | 2019-11-09 10:28 | NUR ---
0900 Abilify held due to patient being sedated.
--- NOTE | 2019-11-09 11:25 | NUR ---
CM/SS attempted to visit with the patient however the patients nurse stated she may still have some sedative affects from the ER visit. CM/SS will come back and visit with the patient when she is more awake and feeling better. The nurse stated that [facility] KHAN was already contacted from the night stocker for a screener. Will continue to follow. Addendum: 11/09/19 at 1138 by CLAUS HOLLIS CM/SS called [facility] KHAN due to patient not being medically clear the first time they were called. Dr. Tran stated patient was cleared to be screened. CM/SS will inform the nurse.
[2019-11-09 12:00] VITALS: BP 165/101
[2019-11-09] MEDS ORDERED: METO50TA15 PO (12:29)
[2019-11-09] MEDS ORDERED: SOFO1TAB PO (12:29)
[2019-11-09] MEDS ORDERED: ARIP10TA17 PO ×2 (12:29→13:29)
[2019-11-09] MEDS ORDERED: GABA-488 PO (12:29)
[2019-11-09] MEDS ORDERED: OMEP-280 PO (12:29)
[2019-11-09] MEDS ORDERED: FLUT16SP22 NS (12:29)
[2019-11-09] MEDS ORDERED: DULO30CA49 PO (12:29)
[2019-11-09] MEDS ORDERED: RT-ALBUINH INH (12:29)
--- NOTE | 2019-11-09 13:15 | NUR ---
JACQUELINE/CLAUDIO spoke with Sam from [facility] who states that the patient is not committable to a facility. He stated they made a plan that she needed to have an appointment with her primary which she states in Jaimee Eubanks at the [facility]. JACQUELINE/CLAUDIO made an appointment for the patient at [facility] for 11/10/19 at 3:15 p.m. JACQUELINE/CLAUDIO informed the patient of this appointment and verbalized understanding with the knowledge that if she cannot make the appointment she could call them and cancel. May need taxi voucher to get back home. Will continue to follow till discharge.
--- NOTE | 2019-11-09 13:27 | Short Stay Summary-Hospitalist ---
History of Present Illness HPI/Chief Complaint Patient is a 59-year-old female with a past medical history of bipolar disease who was admitted for acute psychosis. She is only able to tell me that the police brought her here and otherwise does not recall much of yesterday. Per ER notes she was going to her neighbors and knocking on the doors and wouldn't answer she was attempting to fight them. Police were called and she was brought to the emergency department. At that time she believes there were demons of her body. She denies this at this time. Her only complaint today is that she is having some arthritic pain. She has no other concerns. She does report that she previously took Abilify but has been off of that for roughly 6 months. [facility] attempted to screen her yesterday but she was too sedated to participate. Date Seen 11/09/19 Time Seen by a Provider: 10:45 Attending Physician Kassie Brownlee MD PCP No,Local Physician Referring Physician Date of Admission Nov 08, 2019 at 19:07 Home Medications & Allergies Home Medications Reviewed patient Home Medication Reconciliation performed by pharmacy medication reconciliations research instrumentation technician and/or nursing. Patients Allergies have been reviewed. Allergies Allergies Coded Allergies morphine (Verified Allergy, Mild, 11/29/17) Penicillins (Unverified Allergy, Unknown, 09/22/14) Sulfa (Sulfonamide Antibiotics) (Unverified Allergy, Unknown, 09/22/14) bupropion (Unverified Allergy, Unknown, 09/22/14) cephalexin (Unverified Allergy, Unknown, 09/22/14) ziprasidone (Unverified Allergy, Unknown, 09/22/14) Past Jfjzabk-Amgdhz-Flzcga Hx Past Med/Social Hx: Reviewed Nursing Past Med/Soc Hx Patient Social History Alcohol Use: Denies Use Recreational Drug Use: No Smoking Status: Current Everyday Smoker Type Used: Cigarettes Recent Foreign Travel: No Contact w/other who traveled: No Recent Infectious Disease Expo: No Immunizations Up To Date Tetanus Booster (TDap): Unknown Date of Influenza Vaccine: Oct 28, 2018 Past Medical History Surgeries: Cardiac, Eye Surgery, Hysterectomy, Oophorectomy, Orthopedic Cardiac: High Cholesterol Neurological: Neuropathy, Stroke : No Reproductive: No Hysterectomy Gastrointestinal: Ulcer Musculoskeletal: Arthritis Psychosocial: Anxiety, Bipolar History of Blood Disorders: No Adverse Reaction to Blood Batista: No Family History Reviewed Nursing Family Hx No Pertinent Family Hx Review of Systems ROS-Unable to Obtain: limted by short term recall Constitutional: no symptoms reported EENTM: no symptoms reported Respiratory: no symptoms reported Cardiovascular: no symptoms reported Gastrointestinal: no symptoms reported Genitourinary: no symptoms reported Musculoskeletal: joint pain Psychiatric/Neurological: No Symptoms Reported Physical Exam Physical Exam Vital Signs Vital Signs - First Documented 11/08/19 11/08/19 09:47 19:46 Temp 36.3 Pulse 118 Resp 20 B/P (MAP) 172/148 (156) Pulse Ox 94 O2 Delivery Nasal Cannula O2 Flow Rate 2.00 Capillary Refill : Less Than 3 Seconds Height, Weight, BMI Height: 5'8.00" Weight: 223lbs. 5.0oz. 101.293991ej; 41.14 BMI Method:Stated General Appearance: No Apparent Distress, Chronically ill, Obese HEENT: Moist Mucous Membranes; No Scleral Icterus (L), No Scleral Icterus (R) Neck: Normal Inspection, Supple Respiratory: Lungs Clear, No Accessory Muscle Use, No Respiratory Distress Cardiovascular: Regular Rate, Rhythm, No Murmur Gastrointestinal: Normal Bowel Sounds, Soft Extremity: No Calf Tenderness, No Pedal Edema Neurologic/Psychiatric: Alert, Other (blunted affect, oriented to person and place) Skin: Normal Color, Warm/Dry Results Results/Procedures Labs Laboratory Tests 11/08/19 10:50 Patient resulted labs reviewed. Imaging: Reviewed Imaging Report Short Stay Diagnosis Discharge Diagnosis-Short Stay Admission Diagnosis Acute Psychosis Final Discharge Diagnosis Acute Psychosis Conclusion Plan Acute Psychosis Now resolved Continue [facility] screened today and deemed safe for discharge with outpatient follow up I called and discussed with her PCNP Jaimee Eubanks who will see tomorrow Resume [facility] upon discharge Diagnosis/Problems Diagnosis/Problems (1) Psychosis Status: Acute Qualifiers: Qualified Codes: F29 - Unspecified psychosis not due to a substance or known physiological condition (2) Bipolar disorder Qualifiers: Qualified Codes: F31.9 - Bipolar disorder, unspecified Clinical Quality Measures DVT/VTE Risk/Contraindication: Risk Factor Score Per Nursin RFS Level Per Nursing on Admit: 1=Low/No VTE PPX Copy Copies To 1: GONZALEZ Daniel MD Nov 09, 2019 13:27
--- NOTE | 2019-11-09 13:31 | Discharge Inst-Simple/Standard ---
Discharge Inst-Standard Discharge Medications New, Converted or Re-Newed RX: Transmitted to Pharmacy Patient Instructions/Follow Up Plan of Care/Instructions/FU: Please continue to take her medications as written. Please follow up with your primary nurse practitioner, Jaimee Eubanks, tomorrow. Activity as Tolerated: Yes Discharge Diet: Cardiac Diet Return to The Hospital For: Confusion, thoughts of harm to others or self-harm, if you feel you're getting worse. Planned Outpatient Orders/Ref. Pneu Vac Indicated: Yes GONZALEZ CRANE MD Nov 09, 2019 13:31
--- NOTE | 2019-11-09 13:54 | NUR ---
UNABLE TO SPEAK WITH THE PATIENT EARLIER TODAY DUE TO DROWSINESS AND OTHER PEOPLE INTERVIEWING THE PATIENT. I UPDATED THE MED REC WITH WHAT HAS BEEN FILLED RECENTLY ACCORDING TO THE EXT MED HX HOWEVER THERE ARE SEVERAL MEDS ON HER PROFILE FROM PREVIOUS ADMISSION THAT SHE HAS NOT FILLED RECENTLY ACCORDING TO THE EXT MED HX. I CALLED ANNABELLE LIM OFFICE AT THE [facility] AND GOT A LIST FROM THEM BUT SHE ALSO HAS FILLED SOME SCRIPTS RECENTLY FROM DR. KOVACS THAT IS NOT ON THEIR MED LIST. AT THIS TIME I WAS UNABLE TO FINALIZE THE MED REC DUE TO DISCHARGE ORDERS BEING ENTERED. ANNABELLE LIM OFFICE LIST: CYMBALTA 60MG DAILY METOPROLOL TARTRATE 50MG BID MUPIROCIN OINTMENT BID PROAIR 1 PUFF QID PRN MARIALUISA REPORTS SHE FILLED AND PICKED UP METOPROLOL TARTRATE 50MG DAILY 11-05-19 HOWEVER ON 11-07-19 METOPROLOL TARTRATE 50MG BID WAS CALLED IN HOWEVER IT WAS STORED TO HER PROFILE DUE TO BEING REFILLED TOO SOON. THE DOSE MAY HAVE BEEN INCREASED OR IMPROPERLY FILLED THE FIRST TIME.
--- NOTE | 2019-11-09 15:59 | NUR ---
JACQUELINE/CLAUDIO went back and spoke with the patient for discharge planning. Plan: The patient will return back to the [facility] in [facility] with transportation through the [employer] with a voucher. JACQUELINE/CLAUDIO called Fred ([phone]) who was not available to open the patients door. Fred gave JACQUELINE/CLAUDIO another persons number Elma [phone]) who stated they would open the patients door. JACQUELINE/CLAUDIO informed the patient of this and she verbalized understanding. No other needs at this time.
[2019-11-09 16:00] VITALS: BP 166/83
== END 2019-11-09 16:19 | disposition home or self-care (01) ==
LOC: EDUNIT# 09:37 → ER 09:38 → 4TH 19:07
PROVIDERS: ADMIT Internal Medicine; ATTEND Internal Medicine
DX: F29 Unspecified psychosis not due to a substance or known physiological condition (principal); F31.9 Bipolar disorder, unspecified; F41.9 Anxiety disorder, unspecified; F17.210 Nicotine dependence, cigarettes, uncomplicated; E78.00 Pure hypercholesterolemia, unspecified; G62.9 Polyneuropathy, unspecified; M19.90 Unspecified osteoarthritis, unspecified site; Z88.5 Allergy status to narcotic agent; Z88.2 Allergy status to sulfonamides; Z88.0 Allergy status to penicillin; Z88.1 Allergy status to other antibiotic agents; Z88.8 Allergy status to other drugs, medicaments and biological substances; Z90.710 Acquired absence of both cervix and uterus; Z79.899 Other long term (current) drug therapy; Z86.73 Personal history of transient ischemic attack (TIA), and cerebral infarction without residual deficits
CPT/HCPCS: 36415; 70450; 80053; 80306; 80320; 80329; 81000; 85025; 87077; 87088; 87186; 93005; 93041; G0378

== ENCOUNTER 2021-03-18 13:02 | Emergency (ER) | payer MEDICARE, MEDICAID ==
[~2021-03-18] VITALS: Ht 172 cm; Wt 136.0 kg
[~2021-03-18 13:02] MED LIST changes: +ARIP10TA17 PO; +DULO30CA49 PO; +FLUT16SP22 NS; +GABA-488 PO; +METO50TA15 PO; +OMEP20CA18 PO; +RT-ALBUINH INH; +SOFO1TAB PO
--- NOTE | 2021-03-18 13:14 | ED Chest Pain ---
General Chief Complaint: Chest Pain Stated Complaint: CP/MOUTH NUMBNESS Source: patient Exam Limitations: no limitations (LANE LEWIS APRN) History of Present Illness Date Seen by Provider: Mar 18, 2021 Time Seen by Provider: 13:12 Initial Comments To ER by private vehicle with reports of chest pain that began 20 minutes ago while riding in a car. She reports a multitude of heart attacks and kidney failures and heart murmurs. She is yelling and screaming at us upon arrival that we have let 2 of her friends in the past. She states this is a terrible hospital but she has nowhere else to go. Timing/Duration: changing over time Severity/Quality: moderate Location: central [facility] po SKIVER BLOCKERS: No NTG SL SKIVER BLOCKERS: No Associated Symptoms: No nausea/vomiting, No shortness of breath (LANE LEWIS APRN) Allergies and Home Medications Allergies Coded Allergies: morphine (Verified Allergy, Mild, 11/29/17) Penicillins (Unverified Allergy, Unknown, 09/22/14) Sulfa (Sulfonamide Antibiotics) (Unverified Allergy, Unknown, 09/22/14) bupropion (Unverified Allergy, Unknown, 09/22/14) cephalexin (Unverified Allergy, Unknown, 09/22/14) ziprasidone (Unverified Allergy, Unknown, 09/22/14) Home Medications Albuterol Sulfate 1 Puff Puff, 2 PUFF INH Q4H PRN for SHORTNESS OF BREATH, (Reported) 1 PUFF = 90 MCG Aripiprazole 10 Mg Tablet, 10 MG PO DAILY Prescribed by: GONZALEZ CRANE on 11/09/19 1449 Benztropine Mesylate 0.5 Mg Tablet, 0.5 MG PO BID, (Reported) Duloxetine HCl 60 Mg Capsule.dr, 60 MG PO DAILY, (Reported) TAKES ALONG WITH 30MG CAPSULE Duloxetine HCl 30 Mg Capsule.dr, 30 MG PO DAILY, (Reported) Fluticasone Propionate 16 Gm [place].susp, 2 SPRAYS NS DAILY, (Reported) Fluticasone/Salmeterol 1 Disk Inhp, 1 PUFF INH BID, (Reported) Gabapentin 300 Mg Capsule, 300 MG PO TID, (Reported) Ibuprofen 800 Mg Tablet, 800 MG PO TID PRN for PAIN, (Reported) Meloxicam 15 Mg Tablet, 15 MG PO DAILY, (Reported) Metoprolol Tartrate 50 Mg Tablet, 50 MG PO DAILY, (Reported) Montelukast Sodium 10 Mg Tablet, 10 MG PO DAILY, (Reported) Omeprazole 20 Mg Capsule.dr, 20 MG PO DAILY, (Reported) Oxybutynin Chloride 10 Mg Tab.er.24, 10 MG PO DAILY, (Reported) Sofosbuvir/Velpatasvir 1 Each Tablet, 1 TAB PO DAILY, (Reported) Patient Home Medication List Home Medication List Reviewed: Yes (LANE LEWIS APRN) Review of Systems Review of Systems Constitutional: see HPI EENTM: No Symptoms Reported Respiratory: No Symptoms Reported Cardiovascular: See HPI, Chest Pain Gastrointestinal: No Symptoms Reported Genitourinary: No Symptoms Reported Musculoskeletal: no symptoms reported Skin: no symptoms reported Psychiatric/Neurological: No Symptoms Reported Endocrine: No Symptoms Reported Hematologic/Lymphatic: No Symptoms Reported (LANE LEWIS APRN) Past Bynewgo-Efhnhm-Gyuuys Hx Patient Social History Type Used: Cigarettes (LANE LEWIS APRN) Immunizations Up To Date Tetanus Booster (TDap): Unknown Date of Influenza Vaccine: Oct 28, 2018 (L[address] LEWIS APRN) Past Medical History Surgeries: Yes (CATH-NO INTERVENTION, R WRIST AGE 5, BILATERAL FEET, BILATERAL CATARACTS) Cardiac, Eye Surgery, Hysterectomy, Oophorectomy, Orthopedic Respiratory: No Cardiac: Yes (Previous Angina-1996,CLAIMS "3 HEART ATTACKS" BUT NO MEDICAL DOCUMENTATION ) High Cholesterol Neurological: Yes (CLAIMS PRIOR STROKE, BUT NO MEDICAL DOCUMENTATION OF THIS) Neuropathy, Stroke Reproductive Disorders: 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 5.0oz. 101.851437cq; 41.14 BMI Method:Stated General Appearance: No Apparent Distress, WD/WN, Other (Belligerent, yelling, threatens to leave AGAINST MEDICAL ADVICE and walks out of the room and returns 3 different times before we got her attached to the tie inspector. After she quit yelling as she reports that she now has no chest pain) Neck: Full Range of Motion, Normal Inspection Respiratory: No Accessory Muscle Use, No Respiratory Distress Cardiovascular: Regular Rate, Rhythm, Normal Peripheral Pulses Gastrointestinal: Normal Bowel Sounds, Non Tender, Soft Extremity: Normal Capillary Refill, Normal Inspection Neurologic/Psychiatric: Alert, Oriented x3 Skin: Normal Color, Warm/Dry (LANE LEWIS APRN) Progress/Results/Core Measures Results/Orders Lab Results Laboratory Tests Test 03/18/21 13:15 03/18/21 14:15 03/18/21 15:40 Range/Units White Blood Count 9.0 4.3-11.0 10^3/uL Red Blood Count 4.83 3.80-5.11 10^6/uL Hemoglobin 11.6 11.5-16.0 g/dL Hematocrit 37 35-52 % Mean Corpuscular Volume 76 L 80-99 fL Mean Corpuscular Hemoglobin 24 L 25-34 pg Mean Corpuscular Hemoglobin Concent 32 32-36 g/dL Red Cell Distribution Width 18.0 H 10.0-14.5 % Platelet Count 308 130-400 10^3/uL Mean Platelet Volume 10.6 9.0-12.2 fL Immature Granulocyte % (Auto) 1 % Neutrophils (%) (Auto) 61 42-75 % Lymphocytes (%) (Auto) 30 12-44 % Monocytes (%) (Auto) 8 0-12 % Eosinophils (%) (Auto) 0 0-10 % Basophils (%) (Auto) 0 0-10 % Neutrophils # (Auto) 5.5 1.8-7.8 10^3/uL Lymphocytes # (Auto) 2.7 1.0-4.0 10^3/uL Monocytes # (Auto) 0.7 0.0-1.0 10^3/uL Eosinophils # (Auto) 0.0 0.0-0.3 10^3/uL Basophils # (Auto) 0.0 0.0-0.1 10^3/uL Immature Granulocyte # (Auto) 0.1 0.0-0.1 10^3/uL Prothrombin Time 14.0 12.2-14.7 SEC INR Comment 1.0 0.8-1.4 Activated Partial Thromboplast Time 27 24-35 SEC Sodium Level 133 L 135-145 MMOL/L Potassium Level 4.3 3.6-5.0 MMOL/L Chloride Level 100 98-107 MMOL/L Carbon Dioxide Level 22 21-32 MMOL/L Anion Gap 11 5-14 MMOL/L Blood Urea Nitrogen 10 7-18 MG/DL Creatinine 0.79 0.60-1.30 MG/DL Estimat Glomerular Filtration Rate > 60 BUN/Creatinine Ratio 13 Glucose Level 104 70-105 MG/DL Calcium Level 9.4 8.5-10.1 MG/DL Corrected Calcium 9.7 8.5-10.1 MG/DL Magnesium Level 2.0 1.6-2.4 MG/DL Total Bilirubin 0.3 0.1-1.0 MG/DL Aspartate Amino Transf (AST/SGOT) 32 5-34 U/L Alanine Aminotransferase (ALT/SGPT) 29 0-55 U/L Alkaline Phosphatase 132 40-136 U/L Myoglobin 25.4 10.0-92.0 NG/ML Troponin I < 0.028 < 0.028 <0.028 NG/ML B-Type Natriuretic Peptide 25.2 <100.0 PG/ML Total Protein 7.9 6.4-8.2 GM/DL Albumin 3.6 3.2-4.5 GM/DL Serum Alcohol < 10 <10 MG/DL Urine Color YELLOW Urine Clarity CLEAR Urine pH 6.5 5-9 Urine Specific [place] 1.020 1.016-1.022 Urine Protein NEGATIVE NEGATIVE Urine Glucose (UA) NEGATIVE NEGATIVE Urine Ketones NEGATIVE NEGATIVE Urine Nitrite NEGATIVE NEGATIVE Urine Bilirubin NEGATIVE NEGATIVE Urine Urobilinogen 1.0 < = 1.0 MG/DL Urine Leukocyte Esterase NEGATIVE NEGATIVE Urine RBC (Auto) NEGATIVE NEGATIVE Urine RBC 0-2 /HPF Urine WBC 0-2 /HPF Urine Squamous Epithelial Cells 2-5 /HPF Urine Renal Epithelial Cells 0-2 /HPF Urine Crystals PRESENT H /LPF Urine Calcium Oxalate Crystals FEW H /LPF Urine Bacteria FEW H /HPF Urine Casts NONE /LPF Urine Mucus NEGATIVE /LPF Urine Culture Indicated YES Urine Opiates Screen NEGATIVE NEGATIVE Urine Oxycodone Screen NEGATIVE NEGATIVE Urine Methadone Screen NEGATIVE NEGATIVE Urine Propoxyphene Screen NEGATIVE NEGATIVE Urine Barbiturates Screen NEGATIVE NEGATIVE Ur Tricyclic Antidepressants Screen NEGATIVE NEGATIVE Urine Phencyclidine Screen NEGATIVE NEGATIVE Urine Amphetamines Screen NEGATIVE NEGATIVE Urine Methamphetamines Screen NEGATIVE NEGATIVE Urine Benzodiazepines Screen NEGATIVE NEGATIVE Urine Cocaine Screen NEGATIVE NEGATIVE Urine Cannabinoids Screen POSITIVE H NEGATIVE (HAVEN ANTONIO MD) Vital Signs/I&O 03/18/21 03/18/21 13:02 16:13 Temp 36.0 Pulse 99 73 Resp 16 18 B/P (MAP) 154/144 (147) 127/94 Pulse Ox 95 98 O2 Delivery Room Air Room Air (HAVEN ANTONIO MD) Progress Progress Note : Progress Note NAME: AZEB HOYOS [facility] REC#: [id number] PT STATUS: REG ER : 1960 PHYSICIAN: LANE LEWIS APRN ADMIT DATE: 03/18/21/ER Draft Date of Exam:03/18/21 CHEST 1 VIEW, AP/PA ONLY INDICATION: Chest pain. COMPARISON: 04/04/2016. DISCUSSION: Single portable upright view of the chest was obtained. Normal heart size. No consolidation, pleural fluid, or pneumothorax. No osseous abnormality. IMPRESSION: 1. Negative portable chest. Dictated on workstation # [id number] Dict: 03/18/21 1345 Trans: 03/18/21 1352 [facility] [id number] Interpreted by: NGUYỄN FERRARI MD Electronically signed by: (LANE LEWIS APRN) Progress Note : Progress Note I was physically present in the emergency department as attending physician during the care of this patient, but I was not directly involved in this patient's care. (HAVEN ANTONIO MD) Departure Communication (Admissions) Family Conversation EKG shows a rate of [address] segment change. 1408-She remains chest pain free She refuses aspirin or any blood thinners because she is "a bleeder" (LANE LEWIS APRN) Impression Primary Impression: Chest pain Disposition: 01 HOME, SELF-CARE Condition: Stable Departure-Patient Inst. Referrals: NO,LOCAL PHYSICIAN (PCP/Family) Primary Care Physician LANE LEWIS APRN Mar 18, 2021 13:14 HAVEN ANTONIO MD Mar 20, 2021 09:54
[2021-03-18] MEDS ORDERED: LORazepam INJ 2 MG/ML (ATIVAN) VIAL IVP ONE (13:15)
[2021-03-18 13:30] LABS: BASOPHILS % (AUTO) 0 % (0-10); EOSINOPHILS % (AUTO) 0 % (0-10); HEMATOCRIT 37 % (35-52); HEMOGLOBIN 11.6 g/dL (11.5-16.0); LYMPHOCYTES # (AUTO) 2.7 10^3/uL (1.0-4.0); LYMPHOCYTES % (AUTO) 30 % (12-44); MEAN CORPUSCULAR HEMOGLOBIN 24 pg (25-34); MEAN CORPUSCULAR HGB CONC 32 g/dL (32-36); MEAN CORPUSCULAR VOLUME 76 fL (80-99); MEAN PLATELET VOLUME 10.6 fL (9.0-12.2); MONOCYTES # (AUTO) 0.7 10^3/uL (0.0-1.0); MONOCYTES % (AUTO) 8 % (0-12); NEUTROPHILS # (AUTO) 5.5 10^3/uL (1.8-7.8); NEUTROPHILS % (AUTO) 61 % (42-75); PLATELET COUNT 308 10^3/uL (130-400)
[2021-03-18 13:36] LABS: ALBUMIN 3.6 GM/DL (3.2-4.5); CHLORIDE 100 MMOL/L (98-107); POTASSIUM 4.3 MMOL/L (3.6-5.0); SODIUM 133 MMOL/L (135-145)
[2021-03-18 13:37] LABS: CALCIUM 9.4 MG/DL (8.5-10.1)
[2021-03-18 13:39] LABS: GLUCOSE 104 MG/DL (70-105); TOTAL PROTEIN 7.9 GM/DL (6.4-8.2)
[2021-03-18 13:40] LABS: BILIRUBIN,TOTAL 0.3 MG/DL (0.1-1.0); CARBON DIOXIDE 22 MMOL/L (21-32)
[2021-03-18 13:42] LABS: ALKALINE PHOSPHATASE 132 U/L (40-136); CREATININE SERUM 0.79 MG/DL (0.60-1.30); GFR ESTIMATED > 60
[2021-03-18 13:43] LABS: BUN/CREATININE RATIO 13
[2021-03-18 13:45] LABS: ALANINE AMINOTRANSFERASE 29 U/L (0-55)
--- NOTE | 2021-03-18 13:53 | Diagnostic Imaging Report ---
INDICATION: Chest pain. COMPARISON: 04/04/2016. DISCUSSION: Single portable upright view of the chest was obtained. Normal heart size. No consolidation, pleural fluid, or pneumothorax. No osseous abnormality. IMPRESSION: 1. Negative portable chest. Dictated by: Dictated on workstation # [id number]
[2021-03-18 14:20] LABS: BILIRUBIN,URINE NEGATIVE (NEGATIVE); CLARITY,URINE CLEAR; COLOR,URINE YELLOW; GLUCOSE, URINE (UA) NEGATIVE (NEGATIVE); KETONES,URINE NEGATIVE (NEGATIVE); LEUKOCYTE ESTERASE ,URINE NEGATIVE (NEGATIVE); NITRITE,URINE NEGATIVE (NEGATIVE); PH,URINE 6.5 (5-9); PROTEIN,URINE NEGATIVE (NEGATIVE)
[2021-03-18 14:29] LABS: BACTERIA,URINE FEW /HPF; CALCIUM OXALATE CRYSTALS,UR FEW /LPF; RBC,URINE 0-2 /HPF; RENAL EPITHELIAL CELLS,URINE 0-2 /HPF; WBC,URINE 0-2 /HPF
[2021-03-18 14:32] LABS: AMPHETAMINE SCREEN, URINE NEGATIVE (NEGATIVE); BARBITURATE SCREEN URINE NEGATIVE (NEGATIVE); BENZODIAZEPINES SCREEN URINE NEGATIVE (NEGATIVE); CANNABINOID SCREEN, URINE POSITIVE (NEGATIVE); COCAINE SCREEN URINE NEGATIVE (NEGATIVE); METHADONE STAT NEGATIVE (NEGATIVE); METHAMPHETAMINE SCREEN URINE S NEGATIVE (NEGATIVE); OPIATE SCREEN URINE NEGATIVE (NEGATIVE); OXYCODONE STAT NEGATIVE (NEGATIVE); PROPOXYPHENE STAT NEGATIVE (NEGATIVE); TRICYCLIC ANTIDEPRESSANTS SCRE NEGATIVE (NEGATIVE)
[2021-03-18 16:13] VITALS: BP 127/94
== END 2021-03-18 16:13 | disposition home or self-care (01) ==
LOC: EDUNIT# 13:02 → ER 13:04
DX: R07.9 Chest pain, unspecified (principal); F41.9 Anxiety disorder, unspecified; F31.9 Bipolar disorder, unspecified; G62.9 Polyneuropathy, unspecified; Z79.899 Other long term (current) drug therapy
CPT/HCPCS: 36415; 71045; 80053; 80306; 80320; 81000; 83735; 83874; 83880; 84484; 85025; 85610; 85730; 87077; 87088; 87186; 93005; 93041

== ENCOUNTER 2022-12-31 10:38 | Emergency (ER) | payer MEDICARE, MEDICAID ==
[~2022-12-31] VITALS: Ht 172 cm; Wt 60.0 kg
[~2022-12-31 10:38] MED LIST changes: -ARIP10TA17 PO; +ARIP10TA55 PO
--- NOTE | 2022-12-31 11:12 | ED Psychosocial ---
General Chief Complaint: Psych/Social Disorder Stated Complaint: SCREENING Source: patient (EXTREMELY POOR, EXTREMELY DIFFICULT AND UNRELIABLE HISTORIAN. ), police, old records (ALL HISTORY IS FROM PRIOR RECORDS), other (MENTAL HEALTH) (ROXANNA VINES DO) History of Present Illness Date Seen by Provider: Dec 31, 2022 Time Seen by Provider: 10:41 Initial Comments PT ARRIVES VIA [facility] MENTAL HEALTH SCREENER IS HERE PRIOR TO PT ARRIVAL PT HAS HAD MENTAL HEALTH SCREEN AND HAS BEEN ACC[facility] IN [place], AND ARRANGEMENTS HAVE ALREADY BEEN MADE FOR [place] [employer] TO TRANSFER PT. BROUGHT HERE FOR MEDICAL CLEARANCE. POLICE AND MENTAL HEALTH SCREENER REPORT THAT THEY WERE CONTACTED LAST WEEK AFTER SOMEONE CALLED REGARDING PT WHO WAS RUNNING AROUND NAKED IN THE STREETS/NEIGHBORHOOD. PT WAS FOUND TO BE LIVING IN DEPLORABLE CONDITIONS, WITH INFESTATION OF MICE, "UNLIVABLE RESIDENCE" PER POLICE AND MENTAL HEALTH WORKER AND PT UNABLE TO CARE FOR SELF ADDITIONALLY SHE HAS BEEN SHOWING SIGNS OF PSYCHOSIS. ATTEMPTS AT PLACEMENT LAST WEEK WERE INITIATED, BUT PT ELOPED. POLICE WERE CONTACTED TODAY BY A NEIGHBOR, AFTER FINDING PT WANDERING AROUND THE NEIGHBORHOOD, GOING UP TO RESIDENCES, ETC. SHE AGAIN WAS SHOWING SIGNS OF PSYCHOSIS. MENTAL HEALTH WORKER REPORTS THAT PT HAS BEEN MADE AN INVOLUNTARY ADMIT. PT IS AN EXTREMELY POOR HISTORIAN AND GIVES MUCH INCONSISTENT AND UNRELIABLE INFORMATION SHE STATES THAT SHE SEES MAXIMION WADE AT [facility], BUT HAS NOT SEEN HER "FOR A LONG TIME" AND STATES THAT SHE HAS NOT TAKEN ANY MEDICATION OF ANY KIND "FOR YEARS" PER MED RECONCILIATION, SHE HAD RX'S FOR METOPROLOL, MONTELUKAST, ARIPIPRAZOLE FILLED ON 12/28/22 WRITTEN BY MAXIMINO WADE. PCP: [facility], MAXIMINO WADE, (ROXANNA VINES DO) Allergies and Home Medications Allergies Coded Allergies: morphine (Verified Allergy, Mild, 11/29/17) Penicillins (Unverified Allergy, Unknown, 09/22/14) Sulfa (Sulfonamide Antibiotics) (Unverified Allergy, Unknown, 09/22/14) bupropion (Unverified Allergy, Unknown, 09/22/14) cephalexin (Unverified Allergy, Unknown, 09/22/14) ziprasidone (Unverified Allergy, Unknown, 12/10/14) Patient Home Medication List Home Medication List Reviewed: Yes (HAVEN ANTONIO MD) Albuterol Sulfate (Ventolin Hfa) 1 Puff Puff, 2 PUFF INH Q4H PRN for SHORTNESS OF BREATH, (Reported) Entered as Reported by: OWEN DOMINGUEZ on 11/09/19 1229 Aripiprazole (Aripiprazole) 10 Mg Tablet, 10 MG PO DAILY Prescribed by: GONZALEZ CRANE on 11/09/19 1449 Benztropine Mesylate (Benztropine Mesylate) 0.5 Mg Tablet, 0.5 MG PO BID, (Reported) Entered as Reported by: OWEN DOMINGUEZ on 09/23/14 1011 Duloxetine HCl (Duloxetine HCl) 60 Mg Capsule.dr, 60 MG PO DAILY, (Reported) Entered as Reported by: MILAGRO MCKEON on 09/22/14 2332 Duloxetine HCl (Duloxetine HCl) 30 Mg Capsule.dr, 30 MG PO DAILY, (Reported) Entered as Reported by: OWEN DOMINGUEZ on 11/09/19 1229 Fluticasone Propionate (Fluticasone Propionate) 16 Gm [place].susp, 2 SPRAYS NS DAILY, (Reported) Entered as Reported by: OWEN DOMINGUEZ on 11/09/19 1229 Fluticasone/Salmeterol (Advair 250 Mcg/50 Mcg 60's) 1 Disk Inhp, 1 PUFF INH BID, (Reported) Entered as Reported by: OWEN DOMINGUEZ on 09/23/14 1011 Gabapentin (Gabapentin) 300 Mg Capsule, 300 MG PO TID, (Reported) Entered as Reported by: OWEN DOMINGUEZ on 11/09/19 1229 Ibuprofen (Ibuprofen) 800 Mg Tablet, 800 MG PO TID PRN for PAIN, (Reported) Entered as Reported by: OWEN DOMINGUEZ on 09/23/14 1011 Meloxicam (Meloxicam) 15 Mg Tablet, 15 MG PO DAILY, (Reported) Entered as Reported by: MILAGRO MCKEON on 09/22/14 2332 Metoprolol Tartrate (Metoprolol Tartrate) 50 Mg Tablet, 50 MG PO DAILY, (Reported) Entered as Reported by: OWEN DOMINGUEZ on 11/09/19 1229 Montelukast Sodium (Montelukast Sodium) 10 Mg Tablet, 10 MG PO DAILY, (Reported) Entered as Reported by: OWEN DOMINGUEZ on 09/23/14 1011 Omeprazole (Omeprazole) 20 Mg Capsule.dr, 20 MG PO DAILY, (Reported) Entered as Reported by: OWEN DOMINGUEZ on 11/09/19 1229 Oxybutynin Chloride (Ditropan Xl (Non-Formulary)) 10 Mg Tab.er.24, 10 MG PO DAILY, (Reported) Entered as Reported by: MILAGRO MCKEON on 09/22/14 2332 Sofosbuvir/Velpatasvir (Epclusa 400 mg-100 mg Tablet) 1 Each Tablet, 1 TAB PO DAILY, (Reported) Entered as Reported by: OWEN DOMINGUEZ on 11/09/19 1229 Review of Systems Constitutional: other (PER HPI---PT WILL NOT ANSWER MOST QUESTIONS) Psychiatric/Neurological: See HPI (ROXANNA VINES DO) Past Lmkzlbr-Yazyos-Gykvaz Hx Patient Social History Smoking Status: Unknown if Ever Smoked Use of E-Cig and/or Vaping dev: Unable to obtain Substance use?: Unable to obtain Alcohol Use?: Unable to obtain (ROXANNA VINES DO) Immunizations Up To Date Tetanus Booster (TDap): Unknown (ROXANNA VINES DO) Past Medical History Surgeries: Yes (CATH-NO INTERVENTION, R WRIST AGE 5, BILATERAL FEET, BILATERAL CATARACTS) Cardiac, Eye Surgery, Hysterectomy, Oophorectomy, Orthopedic Respiratory: No Cardiac: Yes (Previous Angina-1996,CLAIMS "3 HEART ATTACKS" BUT NO MEDICAL DOCUMENTATION ) High Cholesterol Neurological: Yes (CLAIMS PRIOR STROKE, BUT NO MEDICAL DOCUMENTATION OF THIS) Neuropathy, Stroke 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 5.0oz. 101.253533fc; 45.00 BMI Method:Stated General Appearance: WD/WN, other (PT IS EXTREMELY MALODOROUS, VERY UNKEMPT AND DISHEVELED, BAREFOOT, VERY LONG FINGERNAILS WITH DIRT, ETC ON/UNDER NAILS. SPEE CH IS RAPID, AND ERRATIC, AND AT TIMES, NON-SENSICAL, NON-RELVANT, TANGENTIAL. CONSTANT MOVEMENTS, BELLIGERENT AND UNCOOPERATIVE. ) HEENT: other (EDENTULOUS, SCABBED SORE TO LOWER LIP, CONSTANT LIP LICKING. ) Neck: normal inspection Respiratory: normal breath sounds, no respiratory distress, no accessory muscle use Cardiovascular: regular rate, rhythm, no murmur Gastrointestinal: non tender, soft Extremities: normal range of motion, no pedal edema, normal capillary refill Neurologic/Psychiatric: lost and found clerk II-XII nml as tested, no motor/sensory deficits, alert, other ( ABOVE.) Appearance/Memory: denies illness, disheveled, impaired insight, impaired recent memory, impaired remote memory Behavior/Eye Contact: increased rate of speech, belligerent, compulsive, uncooperative Thoughts/Hallucinations: no apparent hallucination, paranoid Skin: normal color, warm/dry (ROXANNA VINES DO) Progress/Results/Core Measures Results/Orders Lab Results (HAVEN ANTONIO MD) My Orders Orders - HAVEN ANTONIO MD Olanzapine Orally Dissolve Tab (Zyprexa (12/31/22 18:15) General/Regular (01/01/23 Breakfast) (HAVEN ANTONIO MD) Medications Given in ED Current Medications Medications Dose Ordered Sig/Andrei Route Start Time Stop Time Status Last Admin Dose Admin Olanzapine 5 mg ONCE ONCE PO 01/02/23 07:15 01/02/23 07:16 DC 01/02/23 07:18 5 MG (HAVEN ANTONIO MD) Vital Signs/I&O 01/02/23 01/02/23 06:47 09:29 Temp 36.8 Pulse 63 72 Resp 16 18 B/P (MAP) 137/83 (101) 110/74 Pulse Ox 95 98 O2 Delivery Room Air Room Air (HAVEN ANTONIO MD) Progress Progress Note : Progress Note GIVEN: -ATIVAN -HALDOL -BENADRYL -ZYPREXA 1305--HAVE BEEN INFORMED BY MENTAL HEALTH WORKER, THAT PT HAS BEEN APPROVED FOR ADMIT AT [facility] IN [place], BUT THEY ADVISE THAT THEY CANNOT TAKE THE PATIENT UNTIL TOMORROW MORNING. MENTAL HEALTH WORKER ADVISES THAT WE WILL HAVE TO KEEP PT HERE UNTIL THAT TIME. ARRANGEMENTS ARE BEING MADE FOR PT TO HAVE SITTER. 1350--PT WITH ESCALATING BEHAVIOR, YELLING, AND SCREAMING, WON'T STAY IN ROOM, AND HAS PULLED DOWN HER PANTS AND IS CONSTANTLY SCRATCHING AND "DIGGING" AT HER BUTT, CAUSING BLEEDING. RN REPORTS LARGE HEMORRHOIDS ARE PRESENT--PT STATES "THEY'RE NOT HEMORRHOIDS--SOMEONE STUCK DOGGIE DICKS UP THERE" "THOSE ARE DOGGIE DICKS HANGING OUT" ADDITIONAL MEDICATIONS ORDERED AND PT EVENTUALLY SLEPT. HAVE BEEN UNSUCCESSFUL IN OBTAINING A URINE SPECIMEN--PT HAS URINATED, BUT DEFECATED IN CONTAINER WELL, EACH TIME STAFF ATTEMPTED TO COLLECT A URINE SPECIMEN. PT FED MEAL TRAYS X2 AND ATE ALL, DURING THIS SHIFT. REVIEWED PRIOR RECORDS INCLUDING ER VISITS, ADMITS, H&P'S, TESTS/PROCEDURES AND DISCHARGE SUMMARIES 1800--CARE TURNED OVER TO DR. ANTONIO, PENDING TRANSFER (ROXANNA VINES DO) Progress Note : Time: 18:22 Progress Note Care of this patient was assumed from Dr. Vines at shift change. Detailed verbal report was received from Dr. Vines. Patient is awake and active. She complied with urine specimen. She has asked about the plan which was communicated to her. We anticipate transfer for admission to psychiatric care in the morning. Zyprexa was administered to help maintain stable psychiatric state and prevent further severe agitation. (HAVEN ANTONIO MD) Progress Note : Time: 18:09 Progress Note Patient had stable ED course throughout the day on 01-01-2023. She was up and ambulatory to the bathroom several times. She did require 1 oral dose of Zyprexa 5 mg for some mild agitation. She did pull her pants down at 1 point and had a bowel movement in the floor for the most part has been cooperative. No outbursts or behavioral disturbance otherwise. Still awaiting bed placement at a psychiatric facility for involuntary hold. Care passed to Dr. Zepeda at shift change with disposition pending (AZEB AMAYA MD) Initial ECG Impression Date: Dec 31, 2022 Initial ECG Impression Time: 11:00 Initial ECG Rate: 109 Initial ECG Rhythm: S.Tach (MUCH ARTIFACT) Initial ECG Impression: Nonspecific Changes (ROXANNA VINES DO) Departure Impression Primary Impression: Psychosis Additional Impressions: Unable to care for self Paranoia Disposition: 65 XFER TO PSYCH HOSP/UNIT Condition: Stable Transfer Transfer Reason: Exceeds level of care (HAVEN ANTONIO MD) Departure-Patient Inst. Referrals: NO,LOCAL PHYSICIAN (PCP/Family) Primary Care Physician ROXANNA VINES DO Dec 31, 2022 11:12 HAVEN ANTONIO MD Dec 31, 2022 18:23 AZEB AMAYA MD Jan 01, 2023 18:11
[2022-12-31 11:15] LABS: BASOPHILS % (AUTO) 0 % (0-10); EOSINOPHILS % (AUTO) 0 % (0-10); HEMATOCRIT 43 % (35-52); HEMOGLOBIN 14.5 g/dL (11.5-16.0); LYMPHOCYTES # (AUTO) 1.7 10^3/uL (1.0-4.0); LYMPHOCYTES % (AUTO) 24 % (12-44); MEAN CORPUSCULAR HEMOGLOBIN 29 pg (25-34); MEAN CORPUSCULAR HGB CONC 34 g/dL (32-36); MEAN CORPUSCULAR VOLUME 87 fL (80-99); MEAN PLATELET VOLUME 11.8 fL (9.0-12.2); MONOCYTES # (AUTO) 0.5 10^3/uL (0.0-1.0); MONOCYTES % (AUTO) 7 % (0-12); NEUTROPHILS % (AUTO) 69 % (42-75); PLATELET COUNT 193 10^3/uL (130-400); WHITE BLOOD COUNT 7.2 10^3/uL (4.3-11.0)
[2022-12-31 11:28] LABS: ALBUMIN 3.9 GM/DL (3.2-4.5); CHLORIDE 105 MMOL/L (98-107); POTASSIUM 3.7 MMOL/L (3.6-5.0); SODIUM 139 MMOL/L (135-145)
[2022-12-31 11:29] LABS: CALCIUM 9.8 MG/DL (8.5-10.1)
[2022-12-31 11:30] LABS: GLUCOSE 89 MG/DL (70-105)
[2022-12-31 11:31] LABS: CARBON DIOXIDE 21 MMOL/L (21-32); TOTAL PROTEIN 8.1 GM/DL (6.4-8.2)
[2022-12-31 11:32] LABS: BILIRUBIN,TOTAL 0.7 MG/DL (0.1-1.0)
[2022-12-31 11:34] LABS: ALKALINE PHOSPHATASE 85 U/L (40-136); CREATININE SERUM 0.94 MG/DL (0.60-1.30); GFR ESTIMATED 69
[2022-12-31 11:35] LABS: BUN/CREATININE RATIO 15
[2022-12-31 11:37] LABS: ALANINE AMINOTRANSFERASE 23 U/L (0-55); SALICYLATE < 5.0 MG/DL (5.0-20.0)
[2022-12-31 11:52] LABS: ACETAMINOPHEN < 10 UG/ML (10-30)
[2022-12-31 11:57] LABS: TSH (THYROID ANALYZER) 1.12 UIU/ML (0.35-4.94)
[2022-12-31] MEDS ORDERED: LORazepam INJ 2 MG/ML (ATIVAN) VIAL IM ONE (13:15)
[2022-12-31] MEDS ORDERED: HALOPERIDOL 5 MG/ML (HALDOL) VIAL IM ONE (13:15)
[2022-12-31] MEDS ORDERED: diphenhydrAMINE 50 MG/ML INJ (BENADRYL) ONE (13:49)
[2022-12-31] MEDS ORDERED: diphenhydrAMINE 50 MG/ML INJ (BENADRYL) IM ONE (14:00)
[2022-12-31] MEDS ORDERED: OLANZapine 5 MG ODT (ZyPREXA ZYDIS) PO ONE (14:00)
[2022-12-31 18:13] LABS: BILIRUBIN,URINE NEGATIVE (NEGATIVE); CLARITY,URINE CLEAR; COLOR,URINE YELLOW; GLUCOSE, URINE (UA) NEGATIVE (NEGATIVE); KETONES,URINE NEGATIVE (NEGATIVE); LEUKOCYTE ESTERASE ,URINE TRACE (NEGATIVE); NITRITE,URINE NEGATIVE (NEGATIVE); PROTEIN,URINE NEGATIVE (NEGATIVE)
[2022-12-31] MEDS ORDERED: OLANZapine 5 MG ODT (ZyPREXA ZYDIS) SL ONE (18:15)
[2022-12-31 18:27] LABS: AMPHETAMINE SCREEN, URINE NEGATIVE (NEGATIVE); BARBITURATE SCREEN URINE NEGATIVE (NEGATIVE); BENZODIAZEPINES SCREEN URINE POSITIVE (NEGATIVE); CANNABINOID SCREEN, URINE POSITIVE (NEGATIVE); COCAINE SCREEN URINE NEGATIVE (NEGATIVE); METHADONE STAT NEGATIVE (NEGATIVE); OPIATE SCREEN URINE NEGATIVE (NEGATIVE); OXYCODONE STAT NEGATIVE (NEGATIVE); PROPOXYPHENE STAT NEGATIVE (NEGATIVE); TRICYCLIC ANTIDEPRESSANTS SCRE NEGATIVE (NEGATIVE)
[2022-12-31 18:46] LABS: BACTERIA,URINE FEW /HPF
[2023-01-01] MEDS ORDERED: OLANZapine 5 MG ODT (ZyPREXA ZYDIS) PO ONE (14:45)
[2023-01-01] MEDS ORDERED: HALOPERIDOL 5 MG/ML (HALDOL) VIAL IM ONE (19:15)
[2023-01-01] MEDS ORDERED: diphenhydrAMINE 50 MG/ML INJ (BENADRYL) IM PRN (19:15)
[2023-01-01] MEDS ORDERED: MIDAZOLAM 5 MG/5 ML (VERSED) VIAL ONE (19:25)
[2023-01-01] MEDS ORDERED: MIDAZOLAM 10 MG/2 ML (VERSED) VIAL IM PRN (19:30)
[2023-01-02] MEDS ORDERED: OLANZapine 5 MG ODT (ZyPREXA ZYDIS) PO ONE (07:15)
[2023-01-02 09:29] VITALS: BP 110/74
== END 2023-01-02 09:29 ==
LOC: EDUNIT# 10:38 → ER 10:42
DX: F22 Delusional disorders (principal); K64.9 Unspecified hemorrhoids; E66.9 Obesity, unspecified; Z68.42 Body mass index [BMI] 45.0-49.9, adult
CPT/HCPCS: 36415; 51701; 80053; 80306; 80320; 80329; 81000; 84443; 85025; 87077; 87088; 87186; 87636; 93005

== ENCOUNTER 2023-05-15 22:55 | Inpatient (IN) | payer MEDICARE, MEDICAID ==
[~2023-05-15] VITALS: Ht 175.3 cm; Wt 91.1 kg
[2023-05-15] MEDS ORDERED: ZIPRASIDONE 20 MG INJ (GEODON) VIAL IM ONE ×2 (22:59→23:15)
[2023-05-15] MEDS ORDERED: WATER (STERILE) FOR INJECTION 10 ML ONE (23:00)
[2023-05-15] MEDS ORDERED: NS IV 1000 ML 1,000 ML IV SCH (23:15)
[2023-05-15] MEDS ORDERED: WATER (STERILE) FOR INJ 10 ML BTL INJ SCH (23:15)
[2023-05-15] MEDS ORDERED: OLANZapine 5 MG ODT (ZyPREXA ZYDIS) SL ONE (23:30)
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
[2023-05-16] MEDS ORDERED: LORazepam INJ 2 MG/ML (ATIVAN) VIAL IM ONE (00:15)
[2023-05-16 00:41] LABS: BASOPHILS % (AUTO) 0 % (0-10); EOSINOPHILS % (AUTO) 0 % (0-10); HEMATOCRIT 43 % (35-52); HEMOGLOBIN 13.5 g/dL (11.5-16.0); LYMPHOCYTES # (AUTO) 1.6 10^3/uL (1.0-4.0); LYMPHOCYTES % (AUTO) 15 % (12-44); MEAN CORPUSCULAR HEMOGLOBIN 28 pg (25-34); MEAN CORPUSCULAR HGB CONC 31 g/dL (32-36); MEAN CORPUSCULAR VOLUME 88 fL (80-99); MEAN PLATELET VOLUME 11.4 fL (9.0-12.2); MONOCYTES # (AUTO) 0.9 10^3/uL (0.0-1.0); MONOCYTES % (AUTO) 9 % (0-12); NEUTROPHILS # (AUTO) 8.2 10^3/uL (1.8-7.8); NEUTROPHILS % (AUTO) 76 % (42-75); PLATELET COUNT 175 10^3/uL (130-400); WHITE BLOOD COUNT 10.8 10^3/uL (4.3-11.0)
[2023-05-16 00:49] LABS: CHLORIDE 106 MMOL/L (98-107); POTASSIUM 4.3 MMOL/L (3.6-5.0); SODIUM 137 MMOL/L (135-145)
[2023-05-16 00:51] LABS: CALCIUM 9.9 MG/DL (8.5-10.1)
[2023-05-16 00:52] LABS: GLUCOSE 100 MG/DL (70-105); TOTAL PROTEIN 8.9 GM/DL (6.4-8.2)
[2023-05-16 00:53] LABS: CARBON DIOXIDE 14 MMOL/L (21-32)
[2023-05-16 00:54] LABS: BILIRUBIN,TOTAL 0.8 MG/DL (0.1-1.0)
[2023-05-16 00:56] LABS: ALKALINE PHOSPHATASE 95 U/L (40-136); CREATININE SERUM 2.87 MG/DL (0.60-1.30); GFR ESTIMATED 18
[2023-05-16 00:57] LABS: ACETAMINOPHEN < 10 UG/ML (10-30); BUN/CREATININE RATIO 11
[2023-05-16 00:58] LABS: SALICYLATE < 5.0 MG/DL (5.0-20.0)
[2023-05-16 00:59] LABS: ALANINE AMINOTRANSFERASE 21 U/L (0-55); CREATINE KINASE 847 U/L (29-168)
[2023-05-16 01:19] LABS: TSH (THYROID ANALYZER) 1.34 UIU/ML (0.35-4.94)
[2023-05-16] MEDS ORDERED: NS IV 1000 ML 1,000 ML IV SCH ×3 (01:30→09:00)
[2023-05-16 03:38] VITALS: BP 103/53
[2023-05-16] MEDS ORDERED: LORazepam INJ 2 MG/ML (ATIVAN) VIAL ONE (03:50)
--- NOTE | 2023-05-16 04:14 | Tele-ICU Consult ---
History of Present Illness History of Present Illness Date Seen by Provider: May 16, 2023 Time Seen by Provider: 04:02 History of Present Illness 62 yo F recently discharged from half-way, Hx of methamphetamine abuse found yelling, screaming. Found to be taking Abilify. Appears to be hallucinating Pt will not let her self be examined Has AG of 17, HCO3 14 Cr 2.87 BUN32, glu 100 ALT 21 AST 44 EtOH level < 10, ASA and tylenol negative In ED given 5 mg Olanzapine, Geodon CT head and cervical spine shows cerebral atrophy by my reading, CT chest/abd/pelvis looks ok to me Allergies and Home Medications Allergies Coded Allergies: morphine (Verified Allergy, Mild, 11/29/17) Penicillins (Unverified Allergy, Unknown, 09/22/14) Sulfa (Sulfonamide Antibiotics) (Unverified Allergy, Unknown, 09/22/14) bupropion (Unverified Allergy, Unknown, 09/22/14) cephalexin (Unverified Allergy, Unknown, 09/22/14) Home Medications Albuterol Sulfate 1 Puff Puff, 2 PUFF INH Q4H PRN for SHORTNESS OF BREATH, (Re ported) 1 PUFF = 90 MCG Aripiprazole 10 Mg Tablet, 10 MG PO DAILY Prescribed by: GONZALEZ CRANE on 11/09/19 1449 Benztropine Mesylate 0.5 Mg Tablet, 0.5 MG PO BID, (Reported) Duloxetine HCl 60 Mg Capsule.dr, 60 MG PO DAILY, (Reported) TAKES ALONG WITH 30MG CAPSULE Duloxetine HCl 30 Mg Capsule.dr, 30 MG PO DAILY, (Reported) Fluticasone Propionate 16 Gm [place].susp, 2 SPRAYS NS DAILY, (Reported) Fluticasone/Salmeterol 1 Disk Inhp, 1 PUFF INH BID, (Reported) Gabapentin 300 Mg Capsule, 300 MG PO TID, (Reported) Ibuprofen 800 Mg Tablet, 800 MG PO TID PRN for PAIN, (Reported) Meloxicam 15 Mg Tablet, 15 MG PO DAILY, (Reported) Metoprolol Tartrate 50 Mg Tablet, 50 MG PO DAILY, (Reported) Montelukast Sodium 10 Mg Tablet, 10 MG PO DAILY, (Reported) Omeprazole 20 Mg Capsule.dr, 20 MG PO DAILY, (Reported) Oxybutynin Chloride 10 Mg Tab.er.24, 10 MG PO DAILY, (Reported) Sofosbuvir/Velpatasvir 1 Each Tablet, 1 TAB PO DAILY, (Reported) Past Medical/Social/Family Hx Immunizations Up To Date Tetanus Booster (TDap): Unknown Current Status Primary Language: Georgian Preferred Spoken Language: Georgian Is interpretation needed?: No Review of Systems Constitutional: see HPI EENTM: see HPI Respiratory: see HPI Cardiovascular: see HPI Gastrointestinal: see HPI Genitourinary: see HPI Musculoskeletal: see HPI Skin: see HPI Psychiatric/Neurological: See HPI Focused Exam Height, Weight, BMI Height: 5'8.00" Weight: 223lbs. 5.0oz. 101.112236tr; 20.00 BMI Method:Stated Exam Exam Patient acknowledged, consented, and participated in this virtual visit which was conducted using real time audio/video Vital Signs Date Time Temp Pulse Resp B/P (MAP) Pulse Ox O2 Delivery O2 Flow Rate FiO2 05/16/23 03:38 36.5 112 20 103/53 97 Room Air 05/16/23 01:22 106 103/53 (70) 97 Room Air 05/15/23 23:23 36.5 136 22 96 Room Air I & O 05/16/23 07:00 Intake Total 2000 ml Balance 2000 ml Height & Weight Height: 5'8.00" Weight: 223lbs. 5.0oz. 101.120329yh; 20.00 BMI Method:Stated General Appearance: Other (pt not allowing to be examined) Capillary Refill: Less Than 3 Seconds Results Lab Laboratory Tests 05/15/23 00:30 Assessment/Plan Assessment/Plan Psychosis, has received Geodon and Zyprexa, will continue LAMIN, will hydrate Hx of polysubstance abuse, watch for withdrawal, if possible telepsych, PRN IV Ativan Critical Care: Critically Ill Patient Time spent with patient (mins): 20 CAITIE ENAMORADO MD May 16, 2023 04:14
[2023-05-16] MEDS ORDERED: ONDANSETRON 4 MG/2 ML (SDV) Z0FRAN IV PRN (04:15)
[2023-05-16] MEDS ORDERED: LORazepam INJ 2 MG/ML (ATIVAN) VIAL IV PRN (04:15)
[2023-05-16] MEDS ORDERED: OLANZapine 5 MG ODT (ZyPREXA ZYDIS) PO PRN (04:15)
[2023-05-16 05:02] LABS: BASOPHILS % (AUTO) 0 % (0-10); EOSINOPHILS % (AUTO) 0 % (0-10); HEMATOCRIT 36 % (35-52); HEMOGLOBIN 11.9 g/dL (11.5-16.0); LYMPHOCYTES # (AUTO) 2.7 10^3/uL (1.0-4.0); LYMPHOCYTES % (AUTO) 24 % (12-44); MEAN CORPUSCULAR HEMOGLOBIN 28 pg (25-34); MEAN CORPUSCULAR HGB CONC 34 g/dL (32-36); MEAN CORPUSCULAR VOLUME 82 fL (80-99); MEAN PLATELET VOLUME 11.8 fL (9.0-12.2); MONOCYTES % (AUTO) 9 % (0-12); NEUTROPHILS # (AUTO) 7.3 10^3/uL (1.8-7.8); NEUTROPHILS % (AUTO) 66 % (42-75); PLATELET COUNT 180 10^3/uL (130-400); WHITE BLOOD COUNT 10.9 10^3/uL (4.3-11.0)
[2023-05-16 05:33] LABS: ALBUMIN 3.6 GM/DL (3.2-4.5)
[2023-05-16 05:34] LABS: POTASSIUM 3.5 MMOL/L (3.6-5.0)
[2023-05-16 05:35] LABS: CALCIUM 8.7 MG/DL (8.5-10.1)
[2023-05-16 05:36] LABS: TOTAL PROTEIN 7.7 GM/DL (6.4-8.2)
[2023-05-16 05:38] LABS: BILIRUBIN,TOTAL 0.5 MG/DL (0.1-1.0)
[2023-05-16 05:39] LABS: PHOSPHORUS 4.3 MG/DL (2.3-4.7)
[2023-05-16 05:40] LABS: CREATININE SERUM 1.82 MG/DL (0.60-1.30)
[2023-05-16 05:43] LABS: MAGNESIUM 2.2 MG/DL (1.6-2.4)
[2023-05-16] MEDS ORDERED: NS IV 500 ML 500 ML IV PRN (07:00)
[2023-05-16] MEDS ORDERED: KCL 20 MEQ TAB (K-DUR) PO ONE (07:45)
--- NOTE | 2023-05-16 07:52 | Diagnostic Imaging Report ---
INDICATION: Chest pain. Comparison is made with prior exam of 03/18/2021. FINDINGS: There is cardiomegaly and some ectasia of thoracic aorta. No pleural effusion or pneumothorax. Mediastinum is unremarkable. No lobar pneumonia. There may be some minimal left basilar subsegmental atelectasis and/or pneumonitis. IMPRESSION: Cardiomegaly and ectasia of thoracic aorta with some left basilar subsegmental atelectasis and/or pneumonitis. Dictated by: Dictated on workstation # [id number]
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
[2023-05-16] MEDS: POTASSIUM CL 10MEQ/50ML IVPB 50 ML IV SCH ×4 (09:31→12:31)
--- NOTE | 2023-05-16 12:17 | History & Physical ---
GENIA BOYLE 05/16/23 1217: HPI History of Present Illness: History obtained from records as patient is too somnolent to be aroused this morning. Patient is a 62-year-old female with a history of bipolar and anxiety who was brought to the ED via EMS during an acute psychotic episode yesterday. Per police she was arrested yesterday morning and then released the same day and was acting erratically and paranoid while in custody. She was picked up later that day at a convenience store with dried blood on her clothes and abrasions on her left forehead and nose. Patient has worked with [facility] in the past and had a bottle of abilify, but reports that she stopped taking her medication. While in the E.D. she was uncooperative and combative and was having apparent audio and visual hallucinations. She was given a 10mg Geodon injection before it was noted that she had a coded allergy, however there were no adverse effects. This improved her symptoms only slightly, but she agreed to take 5mg of zyprexa. CT of the head and cervical spine as well as chest/abdomen/pelvis, showed no acute abnormalities. Patient refused to urinate for a tox screen. Per nursing, patient has been more cooperative today, allowing IV access to be placed and her old clothes to be removed and changed into a hospital gown. Emelina Hobbs of [facility] has been by this morning to help facilitate transfer to [facility], where the patient has been placed previously. Source: RN notes reviewed, EMS notes reviewed, old records Exam Limitations: other (Somnolence) Date seen by provider: May 16, 2023 Time Seen by Provider: 08:30 Attending Physician No,Local Physician PCP Admitting Physician: Delonte Moon MD Attending Physician: Delonte Moon MD Consult Date of Admission May 16, 2023 at 03:41 Home Medications Home Medications Reviewed patient Home Medication Reconciliation performed by pharmacy medication reconciliations radio technician and/or nursing. Patients Allergies have been reviewed. Allergies Coded Allergies: morphine (Verified Allergy, Mild, 11/29/17) Penicillins (Unverified Allergy, Unknown, 09/22/14) Sulfa (Sulfonamide Antibiotics) (Unverified Allergy, Unknown, 09/22/14) bupropion (Unverified Allergy, Unknown, 09/22/14) cephalexin (Unverified Allergy, Unknown, 09/22/14) RGQ-Clemqs-Meyvjy Hx Patient Social History Smoking Status: Unknown if Ever Smoked Alcohol Use?: Unable to obtain Immunizations Up To Date Tetanus Booster (TDap): Unknown Influenza Vaccine Up-to-Date: No; Not Current Family Medical History Significant Family History: No Pertinent Family Hx Review of Systems ([facility]) Other Unable to obtain due to somnolence Reviewed Test Results Reviewed Test Results Lab Laboratory Tests Test 05/16/23 04:53 Range/Units White Blood Count 10.9 4.3-11.0 10^3/uL Red Blood Count 4.32 3.80-5.11 10^6/uL Hemoglobin 11.9 11.5-16.0 g/dL Hematocrit 36 35-52 % Mean Corpuscular Volume 82 80-99 fL Mean Corpuscular Hemoglobin 28 25-34 pg Mean Corpuscular Hemoglobin Concent 34 32-36 g/dL Red Cell Distribution Width 15.9 H 10.0-14.5 % Platelet Count 180 130-400 10^3/uL Mean Platelet Volume 11.8 9.0-12.2 fL Immature Granulocyte % (Auto) 0 % Neutrophils (%) (Auto) 66 42-75 % Lymphocytes (%) (Auto) 24 12-44 % Monocytes (%) (Auto) 9 0-12 % Eosinophils (%) (Auto) 0 0-10 % Basophils (%) (Auto) 0 0-10 % Neutrophils # (Auto) 7.3 1.8-7.8 10^3/uL Lymphocytes # (Auto) 2.7 1.0-4.0 10^3/uL Monocytes # (Auto) 1.0 0.0-1.0 10^3/uL Eosinophils # (Auto) 0.0 0.0-0.3 10^3/uL Basophils # (Auto) 0.0 0.0-0.1 10^3/uL Immature Granulocyte # (Auto) 0.0 0.0-0.1 10^3/uL Sodium Level 139 135-145 MMOL/L Potassium Level 3.5 L 3.6-5.0 MMOL/L Chloride Level 111 H 98-107 MMOL/L Carbon Dioxide Level 18 L 21-32 MMOL/L Anion Gap 10 5-14 MMOL/L Blood Urea Nitrogen 28 H 7-18 MG/DL Creatinine 1.82 H 0.60-1.30 MG/DL Estimat Glomerular Filtration Rate 31 BUN/Creatinine Ratio 15 Glucose Level 98 70-105 MG/DL Calcium Level 8.7 8.5-10.1 MG/DL Corrected Calcium 9.0 8.5-10.1 MG/DL Phosphorus Level 4.3 2.3-4.7 MG/DL Magnesium Level 2.2 1.6-2.4 MG/DL Total Bilirubin 0.5 0.1-1.0 MG/DL Aspartate Amino Transf (AST/SGOT) 44 H 5-34 U/L Alanine Aminotransferase (ALT/SGPT) 20 0-55 U/L Alkaline Phosphatase 83 40-136 U/L Total Creatine Kinase 1000 H 29-168 U/L Total Protein 7.7 6.4-8.2 GM/DL Albumin 3.6 3.2-4.5 GM/DL Physical Exam-([facility]) Physical Exam Vital Signs VS - Last 72 Hours, by Label 05/15/23 05/16/23 05/16/23 05/16/23 23:23 01:22 03:38 05:09 Temp 36.5 36.5 Pulse 136 106 112 108 Resp 22 20 B/P (MAP) 103/53 (70) 103/53 Pulse Ox 96 97 97 99 O2 Delivery Room Air Room Air Room Air Room Air 05/16/23 05/16/23 05/16/23 05/16/23 05:15 06:32 07:00 07:58 Temp 36.6 Pulse 102 81 77 106 Resp 20 B/P (MAP) 129/78 (95) Pulse Ox 100 100 97 O2 Delivery Room Air Room Air Room Air 05/16/23 05/16/23 05/16/23 05/16/23 08:00 08:00 09:00 10:00 Pulse 105 70 71 Resp 39 23 60 B/P (MAP) 137/85 (102) 125/75 (92) 117/72 (87) Pulse Ox 92 97 93 94 O2 Delivery Room Air Room Air Room Air Room Air 05/16/23 05/16/23 11:00 11:52 Temp 36.6 Pulse 104 Resp 30 B/P (MAP) 128/70 (89) Pulse Ox 93 O2 Delivery Room Air Room Air Capillary Refill : Less Than 3 Seconds General Appearance: no apparent distress, other (somnolent) Neck: non-tender Respiratory: lungs clear, normal breath sounds, no respiratory distress Cardiovascular: regular rate, rhythm, no edema Gastrointestinal: non tender, soft Back: no vertebral tenderness Extremities: non-tender, no pedal edema Neurologic/Psychiatric: other (somnolent) Skin: normal color, warm/dry Assessment/Plan Assessment/Plan Admission Dx Acute psychosis Admission Status: Observation Assessment & Plan Acute psychosis: Given geodon and zyprexa, continue zyprexa; ativan as needed for agitation LAMIN: Continue IV fluids. BUN improved from 32 yesterday to 28. Cr improved from 2.87 yesterday to 1.82, continue to monitor Hypokalemia: started on K replacement Hx of polysubstance abuse: BAL normal yesterday, unable to obtain urine for drug screen, monitor for signs of withdrawal Social work consulted to work with [facility] to coordinate placement. DELONTE MOON MD 05/16/23 1312: HPI History of Present Illness: Source: patient Exam Limitations: no limitations Home Medications Allergies Coded Allergies: morphine (Verified Allergy, Mild, 11/29/17) Penicillins (Unverified Allergy, Unknown, 09/22/14) Sulfa (Sulfonamide Antibiotics) (Unverified Allergy, Unknown, 09/22/14) bupropion (Unverified Allergy, Unknown, 09/22/14) cephalexin (Unverified Allergy, Unknown, 09/22/14) KNU-Hmrftb-Dpsdea Hx Past Medical History Bipolar Polysubstance abuse Review of Systems ([facility]) Constitutional: other (Unable to gain due to patient not wanting to answer questions) Physical Exam-([facility]) Physical Exam General Appearance: no apparent distress Neck: non-tender, full range of motion Respiratory: chest non-tender, lungs clear, normal breath sounds, no respiratory distress, no accessory muscle use Cardiovascular: normal peripheral pulses, regular rate, rhythm, no edema, no murmur Gastrointestinal: normal bowel sounds, non tender, soft Back: no CVA tenderness, no vertebral tenderness Extremities: normal range of motion, non-tender, normal inspection, no pedal edema, no calf tenderness, normal capillary refill Neurologic/Psychiatric: alert (to name, answers simple questions), other (somnolent) Skin: normal color, warm/dry Lymphatic: no adenopathy Supervisory-Addendum Brief Supervisory Addendum Verification and Attestation of Medical Student E/M Service A medical student performed and documented this service in my presence. I reviewed and verified all information documented by the medical student and made modifications to such information, when appropriate. I personally performed the physical exam and medical decision making. Delonte Moon, May 16, 2023,13:09 A/P Acute psychosis H/o Bipolar disorder Acute Renal Failure Polysubstance abuse Hypokalemia DVT Ppx Managed with olazapine and ativan. Patient resting comfortably. Will decrease IVFs 100/hr. Repeat labs in AM. Renal function improving. Replacing potassium as needed. Inpatient Psych referral process has been started. GENIA BOYLE May 16, 2023 12:17 DELONTE MOON MD May 16, 2023 13:12
[2023-05-16 13:29] LABS: AMPHETAMINE SCREEN, URINE NEGATIVE (NEGATIVE); BARBITURATE SCREEN URINE NEGATIVE (NEGATIVE); BENZODIAZEPINES SCREEN URINE NEGATIVE (NEGATIVE); CANNABINOID SCREEN, URINE POSITIVE (NEGATIVE); COCAINE SCREEN URINE NEGATIVE (NEGATIVE); METHADONE STAT NEGATIVE (NEGATIVE); OPIATE SCREEN URINE NEGATIVE (NEGATIVE); OXYCODONE STAT NEGATIVE (NEGATIVE); PROPOXYPHENE STAT NEGATIVE (NEGATIVE); TRICYCLIC ANTIDEPRESSANTS SCRE NEGATIVE (NEGATIVE)
[2023-05-16 13:40] LABS: COLOR,URINE YELLOW; PROTEIN,URINE TRACE (NEGATIVE)
[2023-05-16 13:41] LABS: BILIRUBIN,URINE NEGATIVE (NEGATIVE); CLARITY,URINE CLOUDY; GLUCOSE, URINE (UA) NEGATIVE (NEGATIVE); KETONES,URINE NEGATIVE (NEGATIVE); LEUKOCYTE ESTERASE ,URINE NEGATIVE (NEGATIVE); NITRITE,URINE NEGATIVE (NEGATIVE)
[2023-05-16 13:42] LABS: BACTERIA,URINE LARGE /HPF; RBC,URINE 0-2 /HPF
[2023-05-16 13:43] LABS: SQUAMOUS EPITHELIAL CELL,UR 0-2 /HPF
[2023-05-16] MEDS ORDERED: ENOXAPARIN 40 MG/0.4 ML SYRINGE SQ SCH (14:00)
--- NOTE | 2023-05-16 14:35 | Discharge Summary ---
Diagnosis/Chief Complaint Date of Admission May 16, 2023 at 03:41 Date of Discharge 05/16/23 Admission Diagnosis Admission Diagnosis Acute Psychosis H/o Bipolar Acute Renal Failure Polysubstance abuse Hypokalemia DVT Discharge Diagnosis See above Chief Complaint/HPI Chief Complaint/HPI History obtained from records as patient is too somnolent to be aroused this morning. Patient is a 62-year-old female with a history of bipolar and anxiety who was brought to the ED via EMS during an acute psychotic episode yesterday. Per police she was arrested yesterday morning and then released the same day and was acting erratically and paranoid while in custody. She was picked up later that day at a convenience store with dried blood on her clothes and abrasions on her left forehead and nose. Patient has worked with [facility] in the past and had a bottle of abilify, but reports that she stopped taking her medication. While in the E.D. she was uncooperative and combative and was having apparent audio and visual hallucinations. She was given a 10mg Geodon injection before it was noted that she had a coded allergy, however there were no adverse effects. This improved her symptoms only slightly, but she agreed to take 5mg of zyprexa. CT of the head and cervical spine as well as chest/abdomen/pelvis, showed no acute abnormalities. Patient refused to urinate for a tox screen. Per nursing, patient has been more cooperative today, allowing IV access to be placed and her old clothes to be removed and changed into a hospital gown. Emelina Hobbs of [facility] has been by this morning to help facilitate transfer to [facility], where the patient has been placed previously. Discharge Summary-Simple/Stand Consultations Discharge Physical Examination Allergies: Coded Allergies: morphine (Verified Allergy, Mild, 11/29/17) Penicillins (Unverified Allergy, Unknown, 09/22/14) Sulfa (Sulfonamide Antibiotics) (Unverified Allergy, Unknown, 09/22/14) bupropion (Unverified Allergy, Unknown, 09/22/14) cephalexin (Unverified Allergy, Unknown, 09/22/14) Vitals & I&Os Vital Sign - Last 12Hours Date Time Temp Pulse Resp B/P (MAP) Pulse Ox O2 Delivery O2 Flow Rate FiO2 05/16/23 12:00 Room Air 05/16/23 11:52 36.6 05/16/23 11:00 104 30 128/70 (89) 93 General Appearance: Alert, No Acute Distress Respiratory: Clear to Auscultation, Normal Air Movement Cardiovascular: Regular Rate, No Murmurs Abdominal: Normal Bowel Sounds, Soft, No Tenderness, No Masses Extremities: No Edema, No Tenderness/Swelling Neuro: Other (disorganized speech) Hospital Course See final discharge diagnosis. Discussion & Recommendations 62 yo F with acute psychosis. She was screened in for involuntary admission to inpatient psych. Discharge Condition at discharge stable Instructions to patient/family Please see electronic discharge instructions given to patient. Discharge Medications Reviewed and agree with Discharge Medication list on patient's Discharge Instruction sheet DELONTE PACHECO MD May 16, 2023 14:35
--- NOTE | 2023-05-16 14:37 | Discharge Summary ---
Discharge [facility] Discharge Medications Continued Medications: Albuterol Sulfate (Ventolin Hfa) 1 Puff Puff 2 PUFF INH Q4H PRN for SHORTNESS OF BREATH, INHALER 1 PUFF = 90 MCG Fluticasone Propionate (Fluticasone Propionate) 16 Gm [place].susp 2 SPRAYS NS DAILY, EA Fluticasone/Salmeterol (Advair 250 Mcg/50 Mcg 60's) 1 Disk Inhp 1 PUFF INH BID Metoprolol Tartrate (Metoprolol Tartrate) 50 Mg Tablet 50 MG PO DAILY, TAB Montelukast Sodium (Montelukast Sodium) 10 Mg Tablet 10 MG PO DAILY Omeprazole (Omeprazole) 20 Mg Capsule.dr 20 MG PO DAILY, CAP Sofosbuvir/Velpatasvir (Epclusa 400 mg-100 mg Tablet) 1 Each Tablet 1 TAB PO DAILY, TAB Discontinued Medications: Aripiprazole (Aripiprazole) 10 Mg Tablet 10 MG PO DAILY, #30 TAB Benztropine Mesylate (Benztropine Mesylate) 0.5 Mg Tablet 0.5 MG PO BID Duloxetine HCl (Duloxetine HCl) 60 Mg Capsule.dr 60 MG PO DAILY TAKES ALONG WITH 30MG CAPSULE Duloxetine HCl (Duloxetine HCl) 30 Mg Capsule.dr 30 MG PO DAILY, CAP Gabapentin (Gabapentin) 300 Mg Capsule 300 MG PO TID, CAP Ibuprofen (Ibuprofen) 800 Mg Tablet 800 MG PO TID PRN for PAIN Meloxicam (Meloxicam) 15 Mg Tablet 15 MG PO DAILY Oxybutynin Chloride (Ditropan Xl (Non-Formulary)) 10 Mg Tab.er.24 10 MG PO DAILY Patient Instructions Goal/Follow Up Appt: Transfer to Psych Activity & Diet Discharge Diet: Regular Diet Activity as Tolerated: Yes DELONTE PACHECO MD May 16, 2023 14:37
[2023-05-17] MEDS ORDERED: POTASSIUM CL 10MEQ/50ML IVPB 50 ML IV SCH (06:00)
[2023-05-17] MEDS ORDERED: KCL 20 MEQ TAB (K-DUR) PO SCH (06:00)
[2023-05-17] MEDS ORDERED: MAGNESIUM 1 GM/100 ML IVPB 100 ML IV SCH (06:00)
== END 2023-05-16 16:25 | DRG 885 ==
LOC: EDUNIT# 22:55 → ER 22:56 → ICU 05-16 03:41
PROVIDERS: ADMIT Family Medicine; ATTEND Family Medicine
DX: F31.2 Bipolar disorder, current episode manic severe with psychotic features (principal); N17.9 Acute kidney failure, unspecified; F41.9 Anxiety disorder, unspecified; E78.00 Pure hypercholesterolemia, unspecified; Z59.00 Homelessness unspecified; G62.9 Polyneuropathy, unspecified; M19.90 Unspecified osteoarthritis, unspecified site; E66.9 Obesity, unspecified; Z68.29 Body mass index [BMI] 29.0-29.9, adult; S00.33XA Contusion of nose, initial encounter; X58.XXXA Exposure to other specified factors, initial encounter; S00.83XA Contusion of other part of head, initial encounter; E87.6 Hypokalemia; Z20.822 Contact with and (suspected) exposure to COVID-19; Z79.1 Long term (current) use of non-steroidal anti-inflammatories (NSAID); Z79.899 Other long term (current) drug therapy; Z88.1 Allergy status to other antibiotic agents; Z88.5 Allergy status to narcotic agent; Z88.0 Allergy status to penicillin; Z88.2 Allergy status to sulfonamides; Z91.09 Other allergy status, other than to drugs and biological substances
CPT/HCPCS: 36415; 70450; 71045; 71250; 72125; 74176; 80053; 80306; 80320; 80329; 81000; 82550; 83735; 84100; 84443; 85025; 87081; 87088; 87636; 96360; 96361; 96372